=== PATIENT | female | born 1990 | race Caucasian/White ===

== ENCOUNTER 2016-10-13 08:52 | Emergency (ER) | payer BC ==
[2016-10-13 09:08] VITALS: BP 111/84
[2016-10-13] MEDS ORDERED: Acetaminophen 325 MG Tab PO ONE (09:52)
[2016-10-13] MEDS ORDERED: Ondansetron 4 MG Tab.DIS PO ONE (09:52)
--- NOTE | 2016-10-13 09:54 | EDM.PDOC ---
ED HPI GENERAL MEDICAL PROBLEM - General Chief Complaint: Laceration Stated Complaint: FALL LAST NIGHT/LAC ON CHIN Time Seen by Provider: 10/13/16 09:25 Source of Information: Reports: Patient History Limitations: Reports: No Limitations - History of Present Illness INITIAL COMMENTS - FREE TEXT/NARRATIVE: The patient presents with a left jaw injury and headache. She got up to get some tylenol for left knee pain last night about midnight. She is not sure what happened after that she was found downstairs laying next to a desk and her left chin was hurting. She was mumbling when her found her. She has a frontal headache and her left jaw hurts and she has a 0.6cm laceration to her jaw. She has no blurred or double vision. She has no neck pain. She has no chest pain or shortness of breath. She has nausea but no vomiting and no abdominal pain. She has no numbness or weakness. She says this has never happened before. She does not think she is . She has some pain to her left knee from a mild injury sustained in [facility]. Onset: Sudden Duration: Hour(s): (last night) Location: Reports: Head, Face (left jaw) Quality: Reports: Sharp Severity: Moderate Improves with: Reports: None Worsens with: Reports: Movement Context: Reports: Activity (She is not sure what happened last night) Associated Symptoms: Reports: Headaches, Nausea/Vomiting. Denies: Chest Pain, Cough, Fever/Chills, Shortness of Breath Oral/Mouth Pain Score (Numeric/FACES): 5 - Related Data Allergies Allergy/AdvReac Type Severity Reaction Status Date / Time azithromycin Allergy Hives Verified 10/13/16 09:09 [From Zithromax Z-Nico] lorazepam [From Ativan] Allergy Anxiety Verified 10/13/16 09:09 meperidine [From Demerol] Allergy Agitation Verified 10/13/16 09:09 Penicillins Allergy Hives Verified 10/13/16 09:09 prednisone Allergy Hives Verified 10/13/16 09:09 propoxyphene Allergy Anxiety Verified 10/13/16 09:09 [From Darvocet-N] Sulfa (Sulfonamide Allergy Hives Verified 10/13/16 09:09 Antibiotics) vancomycin Allergy Hives Verified 10/13/16 09:09 Home Meds: Home Meds Albuterol [Proventil HFA] 1 puff INH Q4H PRN 09/17/16 [History] ClonazePAM [KlonoPIN] 0.5 mg PO Q4H PRN 09/17/16 [History] DULoxetine [Cymbalta] 120 mg PO DAILY 09/17/16 [History] Lubiprostone [Amitiza] 8 mcg PO BID 09/17/16 [History] Ondansetron [Zofran ODT] 4 mg PO Q6H PRN 09/17/16 [History] Past Medical History Respiratory History: Reports: Asthma Gastrointestinal History: Reports: Chronic Constipation, Colon Polyp, Irritable Bowel Syndrome Other Gastrointestinal History: constipation Genitourinary History: Reports: UTI, Recurrent 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: Endometriosis Neurological History: Reports: Migraines Psychiatric History: Reports: Anxiety, Depression - Infectious Disease History Infectious Disease History: Reports: Chicken Pox, Shingles - Past Surgical History GI Surgical History: Reports: Appendectomy, Cholecystectomy Female Surgical History: Reports: Hysterectomy Social & Family History - Family History Family Medical History: Noncontributory Endocrine/Metabolic: Reports: Diabetes, type II - Tobacco Use Smoking Status *Q: Never Smoker Second Hand Smoke Exposure: No - Caffeine Use Caffeine Use: Reports: Soda Other Caffeine Use: daily - Recreational Drug Use Recreational Drug Use: No ED ROS GENERAL - Review of Systems Review Of Systems: See Below Constitutional: Reports: No Symptoms HEENT: Reports: Other (Left jaw pain with a 0.6cm laceration to the left jaw) Respiratory: Reports: No Symptoms Cardiovascular: Reports: No Symptoms Endocrine: Reports: No Symptoms GI/Abdominal: Reports: Nausea. Denies: Abdominal Pain, Vomiting : Reports: No Symptoms Musculoskeletal: Reports: No Symptoms ED EXAM, SKIN/RASH Exam: See Below Exam Limited By: No Limitations General Appearance: Alert, No Apparent Distress Eye Exam: Bilateral Eye: EOMI, PERRL Ears: Normal External Exam Nose: Normal Inspection Throat/Mouth: Other (Pain upon palpation to the left jaw) Head: Other (Pain upon palpation to the left jaw with a 0.6cm laceration to the left jaw) Neck: Normal Inspection, Supple, Non-Tender Respiratory/Chest: No Respiratory Distress, Lungs Clear, Normal Breath Sounds Cardiovascular: Regular Rate, Rhythm, No Edema, No Murmur GI/Abdominal: Soft, Non-Tender, No Organomegaly, No Mass Back Exam: Normal Inspection Extremities: Other (1 area of ecchymosis to the left anterior thigh) Neurological: Alert, Oriented, No Motor/Sensory Deficits EKG INTERPRETATION EKG Date: 10/13/16 Time: 09:36 Rhythm: NSR Rate (Beats/Min): 67 [place]: Normal P-Wave: Present QRS: Normal ST-T: Normal QT: Normal EKG Interpretation Comments: Q waves in the anterior leads Course - Vital Signs Last Recorded V/S: Last Vital Signs Temp 97.7 F 10/13/16 09:02 Pulse 74 10/13/16 09:02 Resp 16 10/13/16 09:02 BP 111/84 10/13/16 09:02 Pulse Ox 97 10/13/16 09:02 - Orders/Labs/Meds Orders: Active Orders 24 hr Category Date Time Status EKG 12 Lead [EKG Documentation Completion] [RC] STAT Care 10/13/16 09:31 Active Labs: Laboratory Tests 10/13/16 10/13/16 10/13/16 Range/Units 10:10 10:10 10:10 WBC 4.88 (3.98-10.04) K/mm3 RBC 4.30 (3.98-5.22) M/mm3 Hgb 12.6 (11.2-15.7) gm/L Hct 37.6 (34.1-44.9) % MCV 87.4 (79.4-94.8) fl MCH 29.3 (25.6-32.2) pg MCHC 33.5 (32.2-35.5) g/dl RDW Std Deviation 37.8 (36.4-46.3) fL Plt Count 275 (182-369) K/mm3 MPV 10.9 (9.4-12.3) fl Neut % (Auto) 45.9 (34.0-71.1) % Lymph % (Auto) 43.9 (19.3-51.7) % Mineral % (Auto) 8.2 (4.7-12.5) % Eos % (Auto) 1.8 (0.7-5.8) Baso % (Auto) 0.2 (0.1-1.2) % Neut # (Auto) 2.24 (1.56-6.13) K/mm3 Lymph # (Auto) 2.14 (1.18-3.74) K/mm3 Mineral # (Auto) 0.40 H (0.24-0.36) K/mm3 Eos # (Auto) 0.09 (0.04-0.36) K/mm3 Baso # (Auto) 0.01 (0.01-0.08) K/mm3 D-Dimer, Quantitative 0.23 (0.19-0.59) mg/L Sodium 140 (136-145) mEq/L Potassium 3.9 (3.5-5.1) mEq/L Chloride 103 (98-107) mEq/L Carbon Dioxide 27 (21-32) mEq/L Anion Gap 13.9 (5-15) BUN 11 (7-18) mg/dL Creatinine 0.9 (0.55-1.02) mg/dL Est Cr Clr Drug Dosing 88.68 mL/min Estimated GFR (MDRD) > 60 (>60) mL/min BUN/Creatinine Ratio 12.2 L (14-18) Glucose 96 (74-106) mg/dL Calcium 8.4 L (8.5-10.1) mg/dL Total Bilirubin 0.4 (0.2-1.0) mg/dL AST 23 (15-37) U/L ALT 44 (14-59) U/L Alkaline Phosphatase 70 (46-116) U/L Troponin I < 0.017 (0.00-0.056) ng/mL Total Protein 7.2 (6.4-8.2) g/dl Albumin 3.7 (3.4-5.0) g/dl Globulin 3.5 gm/dL Albumin/Globulin Ratio 1.1 (1-2) HCG, Qual (NEGATIVE) 10/13/16 Range/Units 10:10 WBC (3.98-10.04) K/mm3 RBC (3.98-5.22) M/mm3 Hgb (11.2-15.7) gm/L Hct (34.1-44.9) % MCV (79.4-94.8) fl MCH (25.6-32.2) pg MCHC (32.2-35.5) g/dl RDW Std Deviation (36.4-46.3) fL Plt Count (182-369) K/mm3 MPV (9.4-12.3) fl Neut % (Auto) (34.0-71.1) % Lymph % (Auto) (19.3-51.7) % Mineral % (Auto) (4.7-12.5) % Eos % (Auto) (0.7-5.8) Baso % (Auto) (0.1-1.2) % Neut # (Auto) (1.56-6.13) K/mm3 Lymph # (Auto) (1.18-3.74) K/mm3 Mineral # (Auto) (0.24-0.36) K/mm3 Eos # (Auto) (0.04-0.36) K/mm3 Baso # (Auto) (0.01-0.08) K/mm3 D-Dimer, Quantitative (0.19-0.59) mg/L Sodium (136-145) mEq/L Potassium (3.5-5.1) mEq/L Chloride (98-107) mEq/L Carbon Dioxide (21-32) mEq/L Anion Gap (5-15) BUN (7-18) mg/dL Creatinine (0.55-1.02) mg/dL Est Cr Clr Drug Dosing mL/min Estimated GFR (MDRD) (>60) mL/min BUN/Creatinine Ratio (14-18) Glucose (74-106) mg/dL Calcium (8.5-10.1) mg/dL Total Bilirubin (0.2-1.0) mg/dL AST (15-37) U/L ALT (14-59) U/L Alkaline Phosphatase (46-116) U/L Troponin I (0.00-0.056) ng/mL Total Protein (6.4-8.2) g/dl Albumin (3.4-5.0) g/dl Globulin gm/dL Albumin/Globulin Ratio (1-2) HCG, Qual Negative (NEGATIVE) Meds: Medications Discontinued Medications Generic Name Dose Route Start Last Admin Trade Name Freq PRN Reason Stop Dose Admin Acetaminophen 975 mg 10/13/16 09:52 10/13/16 10:18 Tylenol PO 10/13/16 09:53 975 mg NOW ONE Administration Ondansetron HCl 4 mg 10/13/16 09:52 10/13/16 10:18 Zofran Odt PO 10/13/16 09:53 4 mg ONETIME ONE Administration - Re-Assessments/Exams Free Text/Narrative Re-Assessment/Exam: 10/13/16 09:58 I ordered an EKG, head CT with facial bones, labs, tylenol 975mg and zofran 4mg ODT. Her EKG shows a NSR with some Q waves in the anterior leads. 10/13/16 11:[address] of her head and maxillofacial CT shows nothing acute. She does have a retension cyst in each maxillary sinus. Her labs all look good. Her told her that she may be sleep walking. He caught her 1 other time and he wonders if this happened again. Departure - Departure Time of Disposition: 11:30 Disposition: Home, Self-Care 01 Condition: Good Clinical Impression: Mucous retention cyst of maxillary sinus Fall Qualifiers: Encounter type: initial encounter Qualified Code(s): W19.XXXA - Unspecified fall, initial encounter Contusion of jaw Qualifiers: Encounter type: initial encounter Qualified Code(s): S00.83XA - Contusion of other part of head, initial encounter Laceration of jaw Qualifiers: Encounter type: initial encounter Qualified Code(s): S01.81XA - Laceration without foreign body of other part of head, initial encounter Headache Qualifiers: Headache type: unspecified Headache chronicity pattern: acute headache Intractability: not intractable Qualified Code(s): R51 - Headache - Discharge Information Referrals: Neha Maria, MEDICAL STAFF SPECIALIST [Primary Care Provider] - 1 Week Forms: ED Department Discharge Additional Instructions: Take tylenol or motrin as needed for the pain. Follow up with your provider. Wash the wound with warm soapy water 2 times per day and apply antibiotic ointment after for 5 days. Please return if you are worse. - My Orders Last 24 Hours: My Active Orders 10/13/16 09:31 EKG 12 Lead [EKG Documentation Completion] [RC] STAT - Assessment/Plan Last 24 Hours: My Active Orders 10/13/16 09:31 EKG 12 Lead [EKG Documentation Completion] [RC] STAT
--- NOTE | 2016-10-13 10:26 | CT ---
CT facial bones Technique: Multiple axial sections through the facial bones were obtained. Reconstructed coronal and sagittal images were reviewed. Findings: Rounded soft tissue density is seen within the right maxillary sinus measuring approximately 1.7 cm in size which is compatible with incidental retention cyst. 2 minimal rounded soft tissue densities measuring less than 5 mm are seen more inferiorly within the right maxillary sinus also compatible with minimal and incidental retention cysts. Similar finding is seen within the inferior left maxillary sinus also compatible with incidental and minimal retention cyst. Very minimal mucosal thickening seen within the ethmoid sinuses. No fluid identified within the sinuses. Mastoid sinuses and middle ear cavities are clear. No facial bone fracture is seen. No abnormality is seen within the temporomandibular joints. Right and left globes are symmetric. Impression: 1. Retention cysts within both maxillary sinuses which are felt to be incidental. Minimal mucosal thickening within the right ethmoid sinus. 2. No additional abnormality is appreciated on CT study of the facial bones. Nothing acute is appreciated. Diagnostic code #2
--- NOTE | 2016-10-13 11:01 | CT ---
Head CT Technique: Multiple axial sections through the brain were obtained. Intravenous contrast was not utilized. Comparison: No previous intracranial imaging. Findings: Ventricles along with basal cisterns and sulci over the convexities are within normal limits for the patient's age. No abnormal parenchymal densities are seen. No evidence of intracranial hemorrhage. No midline shift or mass effect is seen. Bone window settings were reviewed which show no discrete calvarial abnormality. Visualized sinuses are clear. Impression: 1. Nothing acute is identified on noncontrast head CT study. Diagnostic code #1 MTDD
== END 2016-10-13 11:57 | disposition home or self-care (01) ==
LOC: JD.ED 08:52 → MERGE 08:52 → JD.ED 11:57
DX: S01.81XA Laceration without foreign body of other part of head, initial encounter (principal); J34.89 Other specified disorders of nose and nasal sinuses; J45.909 Unspecified asthma, uncomplicated; G43.909 Migraine, unspecified, not intractable, without status migrainosus; F41.9 Anxiety disorder, unspecified; F32.9 Major depressive disorder, single episode, unspecified; Z90.49 Acquired absence of other specified parts of digestive tract; Z90.710 Acquired absence of both cervix and uterus; Z87.440 Personal history of urinary (tract) infections; Z79.899 Other long term (current) drug therapy; Z88.1 Allergy status to other antibiotic agents; Z88.2 Allergy status to sulfonamides; Z88.0 Allergy status to penicillin; Z88.8 Allergy status to other drugs, medicaments and biological substances; W19.XXXA Unspecified fall, initial encounter
CPT/HCPCS: 36415; 70450; 70486; 80053; 84484; 84703; 85025; 85379; 93005; 99284; A9270

== ENCOUNTER 2016-11-10 17:33 | Emergency (ER) | payer BC ==
[2016-11-10 17:40] VITALS: BP 121/83
[2016-11-10] MEDS ORDERED: Sodium Chloride 0.9% 10 ML Syringe FLUSH PRN (17:42)
[2016-11-10] MEDS ORDERED: Sodium Chloride 0.9% 1,000 ML IV ONE (17:42)
[2016-11-10] MEDS ORDERED: Ondansetron 4 MG/2 ML SDV IVPUSH ONE (17:42)
--- NOTE | 2016-11-10 18:22 | EDM.PDOC ---
ED HPI GENERAL MEDICAL PROBLEM - General Chief Complaint: Gastrointestinal Problem Stated Complaint: VOMITING Time Seen by Provider: 11/10/16 17:40 Source of Information: Reports: Patient History Limitations: Reports: No Limitations - History of Present Illness INITIAL COMMENTS - FREE TEXT/NARRATIVE: The patient is a 26-year-old female with a chief complaint of vomiting and diarrhea. Her symptoms started during the night last night, less than 24 hours ago. She states that she's vomited many times. Her last episode was about 5 hours ago. She also has had many episodes of diarrhea. No fever. Minimal abdominal cramping. No dysuria or hematuria. No respiratory symptoms. No known exposure to contaminated food or water, though she did eat a burrito from a fast food place yesterday. No ill contacts. No recent travel. Abdominal Pain Score (Numeric/FACES): 4 - Related Data Allergies Allergy/AdvReac Type Severity Reaction Status Date / Time azithromycin Allergy Hives Verified 11/10/16 17:40 [From Zithromax Z-Nico] lorazepam [From Ativan] Allergy Anxiety Verified 11/10/16 17:40 meperidine [From Demerol] Allergy Agitation Verified 11/10/16 17:40 Penicillins Allergy Hives Verified 11/10/16 17:40 prednisone Allergy Hives Verified 11/10/16 17:40 propoxyphene Allergy Anxiety Verified 11/10/16 17:40 [From Darvocet-N] Sulfa (Sulfonamide Allergy Hives Verified 11/10/16 17:40 Antibiotics) vancomycin Allergy Hives Verified 11/10/16 17:40 Home Meds: Home Meds Albuterol [Proventil HFA] 1 puff INH Q4H PRN 09/17/16 [History] ClonazePAM [KlonoPIN] 0.5 mg PO Q4H PRN 09/17/16 [History] DULoxetine [Cymbalta] 120 mg PO DAILY 09/17/16 [History] Lubiprostone [Amitiza] 8 mcg PO BID 09/17/16 [History] Ondansetron [Zofran ODT] 4 mg PO Q6H PRN 09/17/16 [History] Past Medical History Respiratory History: Reports: Asthma Gastrointestinal History: Reports: Chronic Constipation, Colon Polyp, Irritable Bowel Syndrome Other Gastrointestinal History: constipation Genitourinary History: Reports: UTI, Recurrent 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 Neurological History: Reports: Migraines Psychiatric History: Reports: Anxiety, Depression - Infectious Disease History Infectious Disease History: Reports: Chicken Pox, Shingles - Past Surgical History GI Surgical History: Reports: Appendectomy, Cholecystectomy Female Surgical History: Reports: Hysterectomy Social & Family History - Family History Family Medical History: Noncontributory Endocrine/Metabolic: Reports: Diabetes, type II - Tobacco Use Smoking Status *Q: Never Smoker Second Hand Smoke Exposure: No - Caffeine Use Caffeine Use: Reports: Soda Other Caffeine Use: daily - Recreational Drug Use Recreational Drug Use: No ED ROS GENERAL - Review of Systems Review Of Systems: See Below Constitutional: Reports: Chills, Malaise, Weakness. Denies: Fever HEENT: Reports: No Symptoms Respiratory: Denies: Shortness of Breath Cardiovascular: Denies: Chest Pain Endocrine: Reports: No Symptoms GI/Abdominal: Reports: Abdominal Pain, Diarrhea, Nausea : Denies: Dysuria Musculoskeletal: Reports: No Symptoms Skin: Reports: No Symptoms Neurological: Reports: No Symptoms ED EXAM, GI/ABD - Physical Exam Exam: See Below Exam Limited By: No Limitations General Appearance: Alert, WD/WN, No Apparent Distress Eyes: Bilateral: Normal Appearance Ears: Normal External Exam Nose: Normal Inspection, Normal Mucosa, No Blood Throat/Mouth: Normal Voice, Other Head: Atraumatic, Normocephalic Neck: Supple Respiratory/Chest: No Respiratory Distress, Lungs Clear Cardiovascular: Normal Peripheral Pulses, Regular Rate, Rhythm, No Murmur GI/Abdominal Exam: Soft, No Distention, Other (mild distention diffusely) Neurological: Alert, Oriented, No Motor/Sensory Deficits Psychiatric: Normal Affect, Normal Mood Skin Exam: Warm, Dry, Intact, Normal Color, No Rash Course - Vital Signs Last Recorded V/S: Last Vital Signs Temp 36.9 C 11/10/16 17:38 Pulse 111 H 11/10/16 17:38 Resp 18 11/10/16 17:38 BP 121/83 11/10/16 17:38 Pulse Ox 97 11/10/16 17:38 - Orders/Labs/Meds Orders: Active Orders 24 hr Category Date Time Status Peripheral IV Care [RC] . DIRECTED Care 11/10/16 17:42 Active Sodium Chloride 0.9% [Saline Flush] Med 11/10/16 17:42 Active 10 ml FLUSH ASDIRECTED PRN Peripheral IV Insertion Adult [OM.PC] Routine Oth 11/10/16 17:42 Ordered Medication Orders Sodium Chloride (Saline Flush) 10 ml FLUSH ASDIRECTED PRN PRN Reason: Keep Vein Open Last Admin: 11/10/16 18:14 Dose: 10 ml Labs: Laboratory Tests 11/10/16 11/10/16 Range/Units 18:10 18:10 WBC 14.23 H (3.98-10.04) K/mm3 RBC 5.06 (3.98-5.22) M/mm3 Hgb 14.6 (11.2-15.7) gm/L Hct 43.0 (34.1-44.9) % MCV 85.0 (79.4-94.8) fl MCH 28.9 (25.6-32.2) pg MCHC 34.0 (32.2-35.5) g/dl RDW Std Deviation 38.9 (36.4-46.3) fL Plt Count 286 (182-369) K/mm3 MPV 11.0 (9.4-12.3) fl Neut % (Auto) 84.5 H (34.0-71.1) % Lymph % (Auto) 8.6 L (19.3-51.7) % [place] % (Auto) 6.3 (4.7-12.5) % Eos % (Auto) 0.4 L (0.7-5.8) Baso % (Auto) 0.1 (0.1-1.2) % Neut # (Auto) 12.03 H (1.56-6.13) K/mm3 Lymph # (Auto) 1.22 (1.18-3.74) K/mm3 [place] # (Auto) 0.90 H (0.24-0.36) K/mm3 Eos # (Auto) 0.05 (0.04-0.36) K/mm3 Baso # (Auto) 0.01 (0.01-0.08) K/mm3 Manual Slide Review Normal smear Sodium 140 (136-145) mEq/L Potassium 3.4 L (3.5-5.1) mEq/L Chloride 102 (98-107) mEq/L Carbon Dioxide 25 (21-32) mEq/L Anion Gap 16.4 H (5-15) BUN 9 (7-18) mg/dL Creatinine 1.0 (0.55-1.02) mg/dL Est Cr Clr Drug Dosing 79.81 mL/min Estimated GFR (MDRD) > 60 (>60) mL/min BUN/Creatinine Ratio 9.0 L (14-18) Glucose 98 (74-106) mg/dL Calcium 8.5 (8.5-10.1) mg/dL Total Bilirubin 0.5 (0.2-1.0) mg/dL AST 21 (15-37) U/L ALT 27 (14-59) U/L Alkaline Phosphatase 87 (46-116) U/L Total Protein 7.8 (6.4-8.2) g/dl Albumin 4.2 (3.4-5.0) g/dl Globulin 3.6 gm/dL Albumin/Globulin Ratio 1.2 (1-2) Lipase 101 (73-393) U/L Meds: Medications Generic Name Dose Route Start Last Admin Trade Name Freq PRN Reason Stop Dose Admin Sodium Chloride 10 ml 11/10/16 17:42 11/10/16 18:14 Saline Flush FLUSH 10 ml ASDIRECTED PRN Administration Keep Vein Open Discontinued Medications Generic Name Dose Route Start Last Admin Trade Name Freq PRN Reason Stop Dose Admin Sodium Chloride 1,000 mls @ 1,000 mls/hr 11/10/16 17:42 11/10/16 18:17 Normal Saline IV 11/10/16 18:41 1,000 mls/hr ONETIME ONE Administration Ondansetron HCl 4 mg 11/10/16 17:42 11/10/16 18:14 Zofran IVPUSH 11/10/16 17:43 4 mg ONETIME ONE Administration - Re-Assessments/Exams Free Text/Narrative Re-Assessment/Exam: 11/10/16 18:25 Feels better after fluids and Zofran. Tolerating by mouth liquids. Discussed return precautions. Likely gastroenteritis, viral versus toxin mediated. 11/10/16 19:03 Feeling better after fluids. No further vomiting in ED. Departure - Departure Time of Disposition: 19:03 Disposition: Home, Self-Care 01 Clinical Impression: Vomiting, Diarrhea, Dehydration - Discharge Information Referrals: Neha Maria FACE WORKER [Primary Care Provider] - Forms: ED Department Discharge Additional Instructions: 1. Drink plenty of fluids. Clear liquids today. Advance diet as tolerated once you have an appetite. 2. Take your home supply of zofran as needed for nausea. 3. Return to the ED if you have worsening abdominal pain or vomiting without keeping liquids down or other concerning symptoms. - My Orders Last 24 Hours: My Active Orders 11/10/16 17:42 Peripheral IV Care [RC] . DIRECTED Sodium Chloride 0.9% [Saline Flush] 10 ml FLUSH ASDIRECTED PRN Peripheral IV Insertion Adult [OM.PC] Routine - Assessment/Plan Last 24 Hours: My Active Orders 11/10/16 17:42 Peripheral IV Care [RC] . DIRECTED Sodium Chloride 0.9% [Saline Flush] 10 ml FLUSH ASDIRECTED PRN Peripheral IV Insertion Adult [OM.PC] Routine
== END 2016-11-10 19:25 | disposition home or self-care (01) ==
LOC: JD.ED 17:33 → MERGE 17:33 → JD.ED 19:25
DX: R11.10 Vomiting, unspecified (principal); R19.7 Diarrhea, unspecified; E86.0 Dehydration; J45.909 Unspecified asthma, uncomplicated; F41.9 Anxiety disorder, unspecified; F32.9 Major depressive disorder, single episode, unspecified; Z90.49 Acquired absence of other specified parts of digestive tract; Z90.710 Acquired absence of both cervix and uterus; Z87.440 Personal history of urinary (tract) infections; Z79.899 Other long term (current) drug therapy; Z88.0 Allergy status to penicillin; Z88.1 Allergy status to other antibiotic agents; Z88.2 Allergy status to sulfonamides; Z88.8 Allergy status to other drugs, medicaments and biological substances
CPT/HCPCS: 36415; 80053; 83690; 85025; 96361; 96374; 99283; J2405; J7040; J7050; 99284

== ENCOUNTER 2017-04-11 08:38 | Day surgery (SDC) | payer BC ==
[~2017-04-11 08:38] MED LIST: Lactated Ringers 1,000 ML IV SCH; Lidocaine 1%/Sod Bicarbonate in NS 8.4% 1 ML Syringe IV PRN; Sodium Chloride 0.9% 10 ML Syringe FLUSH PRN
[2017-04-11] MEDS ORDERED: Bupivacaine 0.5% 30 ML SDV ONE (08:51)
[2017-04-11] MEDS ORDERED: Rocuronium 50 MG/5 ML Vial ONE (09:00)
[2017-04-11] MEDS ORDERED: Ondansetron 4 MG/2 ML SDV ONE ×2 (09:00→09:43)
[2017-04-11] MEDS ORDERED: Lidocaine 1% 4 ML ONE (09:00)
[2017-04-11] MEDS ORDERED: Dexamethasone 4 MG/ML SDV ONE (09:01)
[2017-04-11] MEDS ORDERED: Propofol 200 MG/20 ML SDV ONE (09:01)
[2017-04-11] MEDS ORDERED: fentaNYL 250 MCG/5 ML SDV ONE ×2 (09:01→10:18)
[2017-04-11] MEDS ORDERED: Midazolam 1 MG/ML 2 ML SDV ONE (09:01)
--- NOTE | 2017-04-11 09:12 | PCM.PREANE ---
Preanesthetic Assessment - Anesthesia/Transfusion/Family Hx Anesthesia History: Prior Anesthesia Without Reaction (wake up agitated) Family History of Anesthesia Reaction: No Transfusion History: No Prior Transfusion(s) - Review of Systems General: No Symptoms Pulmonary: No Symptoms Cardiovascular: No Symptoms Gastrointestinal: No Symptoms, Abdominal Pain Neurological: No Symptoms Other: Reports: Anxiety - Physical Assessment NPO Status Date: 04/10/17 (sip of water with pills this am) NPO Status Time: 20:00 Pulse: 84 O2 Sat by Pulse Oximetry: 97 Respiratory Rate: 16 Blood Pressure: 113/83 Temperature: 98.1 F Height: 5 ft 5 in Weight: 73 kg ASA Class: 2 Mental Status: Alert & Oriented x3 Airway Class: Mallampati = 1 Dentition: Reports: Normal Dentition Thyro-Mental Finger Breadths: 3 Mouth Opening Finger Breadths: 3 ROM/Head Extension: Full Lungs: Clear to Auscultation, Normal Respiratory Effort Cardiovascular: Regular Rate, Regular Rhythm - Allergies Allergies/Adverse Reactions: Allergies Allergy/AdvReac Type Severity Reaction Status Date / Time azithromycin Allergy Abdominal Verified 04/07/17 14:42 Pain meperidine [From Demerol] Allergy Agitation Verified 04/07/17 14:42 Penicillins Allergy Hives Verified 04/07/17 14:42 prednisone Allergy Hives Verified 04/07/17 14:42 propoxyphene Allergy Anxiety Verified 04/07/17 14:42 [From Darvocet-N] Sulfa (Sulfonamide Allergy Anaphylactic Verified 04/07/17 14:42 Antibiotics) Shock vancomycin Allergy Anaphylactic Verified 04/07/17 14:42 Shock lorazepam [From Ativan] AdvReac Anxiety Verified 04/07/17 14:42 meperidine HCl [From Demerol] AdvReac Anxiety Verified 04/07/17 14:42 - Blood Blood Available: No - Acknowledgements Anesthesia Type Planned: General Anesthesia Pt an Appropriate Candidate for the Planned Anesthesia: Yes Alternatives and Risks of Anesthesia Discussed w Pt/Guardian: Yes Pt/Guardian Understands and Agrees with Anesthesia Plan: Yes PreAnesthesia Questionnaire HEENT History: Reports: Allergic Rhinitis, Impaired Vision, Sinusitis Cardiovascular History: Reports: High Cholesterol, Other (See Below) Other Cardiovascular History: tachycardia Respiratory History: Reports: Asthma Gastrointestinal History: Reports: Irritable Bowel Syndrome, Other (See Below) Other Gastrointestinal History: elevated LFTs, RUQ pain Genitourinary History: Reports: None, Renal Calculus, UTI, Recurrent 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: Reports: Endometriosis Other OB/BYN History: 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 Musculoskeletal History: Reports: Fibromyalgia, Other (See Below) Other Musculoskeletal History: chronic pain Neurological History: Reports: None Psychiatric History: Reports: Anxiety, Depression Endocrine/Metabolic History: Reports: Vitamin D Deficiency Hematologic History: Reports: None Immunologic History: Reports: None Oncologic (Cancer) History: Reports: None - Infectious Disease History Infectious Disease History: Reports: Chicken Pox, MRSA, Shingles Other Infectious Disease History: 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 - Past Surgical History Head Surgeries/Procedures: Reports: None HEENT Surgical History: Reports: Tonsillectomy Respiratory Surgical History: Reports: None GI Surgical History: Reports: Appendectomy, Cholecystectomy, Colonoscopy, EGD Other GI Surgeries/Procedures: perotonitis, n/v Female Surgical History: Reports: Hysterectomy, Salpingo-Oophorectomy, Other (See Below) (laparoscopies multiple- 15) Other Female Surgeries/Procedures: radical hysterectomy Endocrine Surgical History: Reports: None Neurological Surgical History: Reports: None Oncologic Surgical History: Reports: None Dermatological Surgical History: Reports: None - SUBSTANCE USE Smoking Status *Q: Never Smoker Tobacco Use Within Last Twelve Months: No Second Hand Smoke Exposure: No Days Per Week of Alcohol Use: 0 Number of Drinks Per Day: 0 Total Drinks Per Week: 0 Recreational Drug Use History: Yes Recreational Drug Type: Reports: Marijuana/Hashish (in past) - HOME MEDS Home Medications: Home Meds Estradiol 1.5 mg PO DAILY 10/30/15 [History] ClonazePAM [KlonoPIN] 0.5 mg PO Q4H PRN 09/17/16 [History] DULoxetine [Cymbalta] 120 mg PO DAILY 09/17/16 [History] Diclofenac Sodium [Voltaren 1% Gel] 1 applic TOP QID 04/07/17 [History] Gabapentin [Neurontin] 100 mg PO TID 04/07/17 [History] Lactobacillus Acidophilus [Probiotic] 1 cap PO DAILY 04/07/17 [History] Linaclotide [Linzess] 145 mg PO DAILY 04/07/17 [History] Ondansetron [Ondansetron ODT] 8 mg PO TID 04/07/17 [History] Vortioxetine Hydrobromide [Trintellix] 10 mg PO DAILY 04/07/17 [History] - CURRENT (IN HOUSE) MEDS Current Meds: Current Medications Lactated Ringer's (Ringers, Lactated) 1,000 mls @ 125 mls/hr IV ASDIRECTED POP Stop: 04/11/17 18:00 Lidocaine/Sodium Bicarbonate (Buffered Lidocaine 1% In Ns 8.4%) 0.25 ml IV ONETIME PRN PRN Reason: Prior to IV Start Stop: 04/11/17 18:00 Sodium Chloride (Saline Flush) 10 ml FLUSH ASDIRECTED PRN PRN Reason: Keep Vein Open Stop: 04/11/17 18:00 Discontinued Medications Bupivacaine HCl (Marcaine 0.5%) Confirm Administered Dose 30 ml .ROUTE .ST-MED ONE Stop: 04/11/17 08:52 Dexamethasone (Dexamethasone) Confirm Administered Dose 4 mg .ROUTE .ST-MED ONE Stop: 04/11/17 09:02 Fentanyl (Sublimaze) Confirm Administered Dose 250 mcg .[facility]TE [facility] Stop: 04/11/17 09:02 Lactated Ringer's (Ringers, Lactated) 1,000 mls @ 125 mls/hr IV ASDIRECTED [facility] Lidocaine HCl (Xylocaine-Mpf 1%) Confirm Administered Dose 4 mls @ as directed .ROUTE [facility] ONE Stop: 04/11/17 09:01 Lidocaine/Sodium Bicarbonate (Buffered Lidocaine 1% In Ns 8.4%) 0.25 ml IV ONETIME PRN PRN Reason: Prior to IV Start Midazolam HCl (Versed 1 Mg/Ml) Confirm Administered Dose 2 mg .ROUTE .STK-MED ONE Stop: 04/11/17 09:02 Ondansetron HCl (Zofran) Confirm Administered Dose 4 mg .ROUTE [facility] ONE Stop: 04/11/17 09:01 Propofol (Diprivan 20 Ml) Confirm Administered Dose 200 mg .ROUTE [facility] ONE Stop: 04/11/17 09:02 Rocuronium [place] (Zemuron) Confirm Administered Dose 50 mg .ROUTE [facility] ONE Stop: 04/11/17 09:01 Sodium Chloride (Saline Flush) 10 ml FLUSH ASDIRECTED PRN PRN Reason: Keep Vein Open
[2017-04-11] MEDS ORDERED: Scopolamine 1 MG Transdermal Patch TOP ONE (09:14)
[2017-04-11] MEDS ORDERED: Promethazine 6.25 MG in Sodium Chloride 0.9% 9 ML IV PRN (09:46)
[2017-04-11] MEDS ORDERED: Albuterol 0.083% 2.5 MG/3 ML Neb Soln NEB ONE (09:46)
[2017-04-11] MEDS ORDERED: HYDROmorphone 0.5 MG/0.5 ML Syringe IVPUSH PRN (09:46)
[2017-04-11] MEDS ORDERED: Ondansetron 4 MG/2 ML SDV IVPUSH PRN (09:46)
[2017-04-11] MEDS ORDERED: fentaNYL 100 MCG/2 ML SDV IVPUSH PRN (09:46)
[2017-04-11] MEDS ORDERED: Lactated Ringers 1,000 ML ONE (09:56)
[2017-04-11] MEDS ORDERED: HYDROmorphone 1 MG/ML Syringe ONE (09:58)
[2017-04-11] MEDS ORDERED: Neostigmine Methylsulfate 1 MG/ML 5 ML Syringe ONE (10:13)
[2017-04-11] MEDS ORDERED: diphenhydrAMINE 50 MG/ML SDV ONE (10:40)
--- NOTE | 2017-04-11 10:41 | PCM.POSTAN ---
POST ANESTHESIA ASSESSMENT - MENTAL STATUS Mental Status: Alert, Oriented - VITAL SIGNS Pulse Rate: 116 SaO2: 98 Resp Rate: 20 Blood Pressure: 116/72 Temperature: 98.4 F - RESPIRATORY Respiratory Status: Respiratory Rate WNL, Airway Patent, O2 Saturation Stable, Supplemental Oxygen - CARDIOVASCULAR CV Status: Pulse Rate WNL, Blood Pressure Stable - GASTROINTESTINAL GI Status: No Symptoms - PAIN Pain Score: 7 - POST OP HYDRATION Hydration Status: Adequate & Stable
--- NOTE | 2017-04-11 10:41 | PCM.OPNOTE ---
- General Post-Op/Procedure Note Date of Surgery/Procedure: 04/11/17 Operative Procedure(s): Diagnostic laparoscopy with lysis of adhesions Findings: Overall normal-appearing omentum, bowel and liver. Adhesions from omentum to anterior abdominal wall near umbilicus. Filmy adhesions from the descending colon to left lateral abdominal wall. Filmy adhesions from ascending colon to right lateral abdominal wall near the hepatic flexure. Pre Op Diagnosis: Pelvic pain Post-Op Diagnosis: Same, adhesions Anesthesia Technique: General ET Tube Primary Surgeon: Hal Lyons Secondary Surgeon: Crow Garner Anesthesia Provider: Sukumar Leo Reason Echocardiography Radiology Technologist Was Necessary: Patient's safety and technical skills of laparoscopy Role of Echocardiography Radiology Technologist: Manipulation of laparoscopic instruments during case Fluid Replacement, Intraop: 1,100 Output, Urine Amount: 75 EBL in mLs: 5 Complications: None Condition: Good Free Text/Narrative:: Duration: 38 minutes Procedure in detail: Patient was seen in the preoperative holding area and reviewed H&P and operative consent forms. Patient desired to proceed with surgery including diagnostic laparoscopy, possible fulguration of endometriosis lesions, possible lysis of adhesions and possible biopsies as indicated. The risks and benefits were reviewed and patient desired to proceed. Patient was taken back to operating room #3 and given general anesthesia with an endotracheal tube that was placed without difficulty. She was placed in dorsal supine position. A Ortiz catheter was placed without difficulty. She was prepped and draped in the normal sterile fashion. A time out was held verifying patient information using 2 patient identifiers and to confirm the correct procedure. The umbilicus was injected with 0.5% Marcaine and a stab incision with a scalpel was made. A 5 mm trocar was inserted under direct visualization with the laparoscope. Attention was then turned to the patient's pelvis and an area in the previous suprapubic scar was injected with 0.5% Marcaine and a stab incision was made with the scalpel. 5 mm trocar was inserted under direct visualization. The abdomen and pelvis was then explored and noted to have adhesions near the umbilicus to the omentum. Attention was then turned to the left lower quadrant and an area approximately [facility] between the ASIS and the umbilicus was injected with 0.5% Marcaine and a stab incision was made with a scalpel. 5 mm trocar was inserted under direct visualization. The anterior abdominal wall adhesions were then taken down using a harmonic scalpel. Hemostasis was noted. Attention was then turned to the pelvis and there is noted to be a proximally 5 mm thick adhesion from the descending colon to the left lateral abdominal wall as well as some filmy adhesions. These were taken down using the Harmonic scalpel. Hemostasis was again noted. The abdomen was then further explored and noted to have filmy adhesions from the ascending colon to the right lateral wall. These were taken down using blunt traction with laparoscopic graspers and the Harmonic scalpel. There is a small amount of bleeding on the anterior abdominal wall and this was cauterized using the Harmonic scalpel. Hemostasis was noted. The remainder of the abdomen was explored and was noted to have overall normal-appearing omentum , bowel and liver. Case was completed at this time. The inferior trochars were removed under direct visualization and no bleeding was visualized. The gas was removed from the abdomen and the umbilical trocar was removed without difficulty. The skin incisions were closed using interrupted sutures of 4-0 Monocryl. Skin glue was applied over the top of the incisions. Lap, sponge, instrument and needle counts are correct 2 at the end of the case. The patient was awoken and taken back to the recovery area. She will be discharged from PACU once she is tolerating small amount of regular diet, pain is controlled with oral medications, voiding without difficulty, and ambulating without difficulty. She is given strict return precautions for severe pain, fevers, chills, severe nausea or vomiting, or bleeding or pus coming from the incision. Patient will follow up in 2-3 weeks or earlier as needed.
[2017-04-11] MEDS ORDERED: diphenhydrAMINE 50 MG/ML SDV IVPUSH ONE (10:48)
[2017-04-11] MEDS ORDERED: Acetaminophen/oxyCODONE 325-5 MG Tab PO SCH (12:00)
--- NOTE | 2017-04-11 12:18 | PCM48HPAN ---
Post Anesthesia Note - EVALUATION WITHIN 48HRS OF ANESTHETIC Vital Signs in Normal Range: Yes Patient Participated in Evaluation: Yes Respiratory Function Stable: Yes Airway Patent: Yes Cardiovascular Function Stable: Yes Hydration Status Stable: Yes Pain Control Satisfactory: Yes Nausea and Vomiting Control Satisfactory: Yes Mental Status Recovered: Yes
[2017-04-11 12:22] VITALS: BP 92/50
== END 2017-04-11 12:35 | disposition home or self-care (01) ==
LOC: JD.SDS 08:38
PROVIDERS: ATTEND Obstetrics & Gynecology
DX: N73.6 Female pelvic peritoneal adhesions (postinfective) (principal); E78.00 Pure hypercholesterolemia, unspecified; J45.909 Unspecified asthma, uncomplicated; M79.7 Fibromyalgia; K58.9 Irritable bowel syndrome, unspecified; F41.8 Other specified anxiety disorders; Z88.0 Allergy status to penicillin; Z88.1 Allergy status to other antibiotic agents; Z88.2 Allergy status to sulfonamides; Z88.5 Allergy status to narcotic agent; Z88.8 Allergy status to other drugs, medicaments and biological substances; Z87.440 Personal history of urinary (tract) infections; Z87.442 Personal history of urinary calculi; Z86.14 Personal history of Methicillin resistant Staphylococcus aureus infection; Z98.890 Other specified postprocedural states; Z90.710 Acquired absence of both cervix and uterus; Z90.722 Acquired absence of ovaries, bilateral; Z90.49 Acquired absence of other specified parts of digestive tract; Z79.899 Other long term (current) drug therapy; Z79.818 Long term (current) use of other agents affecting estrogen receptors and estrogen levels; Z82.62 Family history of osteoporosis; Z83.42 Family history of familial hypercholesterolemia; Z82.49 Family history of ischemic heart disease and other diseases of the circulatory system; Z83.3 Family history of diabetes mellitus; N39.0 Urinary tract infection, site not specified
CPT/HCPCS: 36415; 51798; 58660; 81001; 85025; 87086; 87088; 87186; 99283; A9270; J1170; J1200; J2250; J2405; J2710; J3010; J7120; P9612; 00840; J1100; J2001; J2704

== ENCOUNTER 2017-04-11 20:42 | Emergency (ER) | payer BC ==
[2017-04-11 20:53] VITALS: BP 104/81
--- NOTE | 2017-04-11 21:34 | EDM.PDOC ---
ED HPI GENERAL MEDICAL PROBLEM - General Chief Complaint: Genitourinary Problem Stated Complaint: COMPLICATIONS FROM SURGERY TODAY Time Seen by Provider: 04/11/17 20:53 Source of Information: Reports: Patient, Old Records History Limitations: Reports: No Limitations - History of Present Illness INITIAL COMMENTS - FREE TEXT/NARRATIVE: The patient underwent an exploratory laparoscopy with lysis of adhesions per Dr. Bryant and Dr. Garner, earlier today. She states that since her surgery, she has not been able to urinate. She states that she has a history of urinary retention, but not specifically associated with surgery. She states that she has an appointment to see a Urologist on 05/06/2017. No recent fever or dysuria. No lower back pain or flank pain. The patient's PCP is Paige Coleman. Lower Abdomen Pain Score (Numeric/FACES): 8 - Related Data Allergies Allergy/AdvReac Type Severity Reaction Status Date / Time Penicillins Allergy Hives Verified 04/07/17 14:42 prednisone Allergy Hives Verified 04/07/17 14:42 Sulfa (Sulfonamide Allergy Anaphylactic Verified 04/07/17 14:42 Antibiotics) Shock vancomycin Allergy Anaphylactic Verified 04/07/17 14:42 Shock azithromycin AdvReac Abdominal Verified 04/11/17 10:24 Pain lorazepam [From Ativan] AdvReac Anxiety Verified 04/07/17 14:42 meperidine [From Demerol] AdvReac Agitation Verified 04/11/17 10:24 meperidine HCl [From Demerol] AdvReac Anxiety Verified 04/07/17 14:42 propoxyphene AdvReac Anxiety Verified 04/11/17 10:24 [From Darvocet-N] Home Meds: Home Meds Estradiol 1.5 mg PO DAILY 10/30/15 [History] ClonazePAM [KlonoPIN] 0.5 mg PO Q4H PRN 09/17/16 [History] DULoxetine [Cymbalta] 120 mg PO DAILY 09/17/16 [History] Diclofenac Sodium [Voltaren 1% Gel] 1 applic TOP QID 04/07/17 [History] Gabapentin [Neurontin] 100 mg PO TID 04/07/17 [History] Lactobacillus Acidophilus [Probiotic] 1 cap PO DAILY 04/07/17 [History] Linaclotide [Linzess] 145 mg PO DAILY 04/07/17 [History] Ondansetron [Ondansetron ODT] 8 mg PO TID 04/07/17 [History] Vortioxetine Hydrobromide [Trintellix] 10 mg PO DAILY 04/07/17 [History] Ibuprofen 600 mg PO Q6H PRN #60 tablet 04/11/17 [Rx] Nitrofurantoin Monohyd/M-Cryst [Macrobid 100 mg Capsule] 1 cap PO Q12H #9 capsule 04/11/17 [Rx] oxyCODONE HCl/Acetaminophen [Percocet 5-325 mg Tablet] 1 - 2 each PO Q6H PRN # 20 tablet 04/11/17 [Rx] Past Medical History HEENT History: Reports: Allergic Rhinitis, Impaired Vision, Sinusitis Cardiovascular History: Reports: High Cholesterol, Other (See Below) Other Cardiovascular History: tachycardia Respiratory History: Reports: Asthma Gastrointestinal History: Reports: Irritable Bowel Syndrome, Other (See Below) Other Gastrointestinal History: elevated LFTs, RUQ pain Genitourinary History: Reports: None, Renal Calculus, UTI, Recurrent 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: Reports: Endometriosis Other OB/BYN History: 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 Musculoskeletal History: Reports: Fibromyalgia, Other (See Below) Other Musculoskeletal History: chronic pain Neurological History: Reports: None Psychiatric History: Reports: Anxiety, Depression Endocrine/Metabolic History: Reports: Vitamin D Deficiency Hematologic History: Reports: None Immunologic History: Reports: None Oncologic (Cancer) History: Reports: None - Infectious Disease History Infectious Disease History: Reports: Chicken Pox, MRSA, Shingles Other Infectious Disease History: 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 - Past Surgical History Head Surgeries/Procedures: Reports: None HEENT Surgical History: Reports: Tonsillectomy Respiratory Surgical History: Reports: None GI Surgical History: Reports: Appendectomy, Cholecystectomy, Colonoscopy, EGD Other GI Surgeries/Procedures: perotonitis, n/v Female Surgical History: Reports: Hysterectomy, Salpingo-Oophorectomy, Other (See Below) Other Female Surgeries/Procedures: radical hysterectomy Endocrine Surgical History: Reports: None Neurological Surgical History: Reports: None Oncologic Surgical History: Reports: None Dermatological Surgical History: Reports: None Social & Family History - Family History Family Medical History: Noncontributory Cardiac: Reports: CAD (grandfather has had 2 CABG) Endocrine/Metabolic: Reports: Diabetes, type II, Osteoporosis - Tobacco Use Smoking Status *Q: Never Smoker Used Tobacco, but Quit: No Second Hand Smoke Exposure: No - Caffeine Use Caffeine Use: Reports: Soda Other Caffeine Use: daily - Alcohol Use Days Per Week of Alcohol Use: 0 Number of Drinks Per Day: 0 Total Drinks Per Week: 0 - Recreational Drug Use Recreational Drug Use: No Drug Use in Last 12 Months: Yes Recreational Drug Type: Reports: Marijuana/Hashish (in past) Recreational Drug Use Frequency: Daily - Living Situation & Occupation Living situation: Reports: with Significant Other Occupation: Unemployed ED ROS GENERAL - Review of Systems Review Of Systems: ROS reveals no pertinent complaints other than HPI. ED EXAM, RENAL/ - Physical Exam Exam: See Below Exam Limited By: No Limitations General Appearance: Alert, WD/WN, No Apparent Distress Eye Exam: Bilateral Eye: Normal Inspection Ears: Normal External Exam, Hearing Grossly Normal Nose: Normal Inspection, No Blood Throat/Mouth: Normal Inspection, Normal Lips, Normal Voice, No Airway Compromise Head: Atraumatic, Normocephalic Neck: Normal Inspection, Full Range of Motion Respiratory/Chest: No Respiratory Distress, Lungs Clear, Normal Breath Sounds, No Accessory Muscle Use Cardiovascular: Normal Peripheral Pulses, Regular Rate, Rhythm, No Gallop, No JVD, No Murmur, No Rub GI/Abdominal: Normal Bowel Sounds, Soft, No Organomegaly, No Distention, No Abnormal Bruit, No Mass, Tender (Appropriate dajuan-incisional tenderness) (Female) Exam: Deferred Rectal (Female) Exam: Deferred Back Exam: Normal Inspection, Full Range of Motion, NT Extremities: Normal Inspection, Normal Range of Motion, No Pedal Edema, Normal Capillary Refill Neurological: Alert, Oriented, Normal Cognition, No Motor/Sensory Deficits Psychiatric: Normal Affect Skin Exam: Warm, Dry, Intact, Normal Color, No Rash Course - Vital Signs Last Recorded V/S: Last Vital Signs Temp 36.7 C 04/11/17 20:50 Pulse 100 04/11/17 20:50 Resp 16 04/11/17 20:50 BP 104/81 04/11/17 20:50 Pulse Ox 98 04/11/17 20:50 - Orders/Labs/Meds Orders: Active Orders 24 hr Category Date Time Status CULTURE URINE [RM] Stat Lab 04/11/17 22:48 Ordered Labs: Laboratory Tests 04/11/17 Range/Units 21:39 Urine Color Yellow (Yellow) Urine Appearance Clear (Clear) Urine pH 6.5 (5.0-8.0) Ur Specific [place] 1.020 (1.005-1.030) Urine Protein Negative (Negative) Urine Glucose (UA) Negative (Negative) Urine Ketones Negative (Negative) Urine Occult Blood Negative (Negative) Urine Nitrite Positive H (Negative) Urine Bilirubin Negative (Negative) Urine Urobilinogen 0.2 (0.2-1.0) Ur Leukocyte Esterase Negative (Negative) Urine RBC 0-5 (0-5) /hpf Urine WBC 5-10 H (0-5) /hpf Ur Epithelial Cells 0-5 (0-5) /hpf Urine Bacteria Moderate H (FEW) /hpf Urine Mucus Not seen (FEW) /hpf Meds: Medications Discontinued Medications Generic Name Dose Route Start Last Admin Trade Name Freq PRN Reason Stop Dose Admin Nitrofurantoin Macrocrystals 100 mg 04/11/17 22:44 Macrobid PO 04/11/17 22:45 ONETIME ONE - Re-Assessments/Exams Free Text/Narrative Re-Assessment/Exam: 04/11/17 21:32 Bladder scan in case 500 mL of urine in the bladder. The patient was offered the choice of a quick catheter, with the possibility of having to return to the ED for repeat catheterization, versus placement of a Ortiz to a leg bag, which would require follow-up with her Urologist this week, not 05/06/2017. The patient opted for quick catheterization. I will send a urinalysis. 04/11/17 22:45 The patient's urinalysis is consistent with a UTI. I have ordered a urine culture. The patient reports allergies to numerous antibiotics, including penicillin, sulfa, vancomycin, and azithromycin. I will start the patient on Macrobid. A scopolamine patch was found behind the patient's left ear. This anticholinergic could contribute to urinary retention. The patient removed it. Departure - Departure Time of Disposition: 22:46 Disposition: Home, Self-Care 01 Condition: Good Clinical Impression: Urinary retention, UTI (urinary tract infection) - Discharge Information Referrals: Paige Coleman PA [Physician Typer] - Forms: ED Department Discharge Additional Instructions: You were seen in the emergency room for inability to urinate, following surgery earlier today. Workup in the ER included a bladder scan and urinalysis. The bladder scan revealed 500 mL of urine retained in your bladder. This was drained with a catheter. Your urinalysis is consistent with a urinary tract infection. You have been started on the antibiotic Macrobid. Take one tablet every 12 hours , as prescribed. Finish the entire prescription unless told otherwise by Paige Coleman. Stay adequately hydrated. A sample of your urine has been sent for culture. Results should be available within 3 days. Contact the office of Ms. Coleman on 04/14/2017, to check on the urine culture results, to make sure that you are on the right antibiotic. If any other problems, including continued inability to urinate, please do not hesitate to return to the ER. - My Orders Last 24 Hours: My Active Orders 04/11/17 22:48 CULTURE URINE [RM] Stat - Assessment/Plan Last 24 Hours: My Active Orders 04/11/17 22:48 CULTURE URINE [RM] Stat
[2017-04-11] MEDS ORDERED: Nitrofurantoin Monohydrate/Macrocrystalline 100 MG Cap PO ONE (22:44)
== END 2017-04-11 23:11 | disposition home or self-care (01) ==
LOC: JD.ED 20:42
DX: N39.0 Urinary tract infection, site not specified (principal); E78.00 Pure hypercholesterolemia, unspecified; Z88.2 Allergy status to sulfonamides; Z88.0 Allergy status to penicillin; Z88.8 Allergy status to other drugs, medicaments and biological substances; Z79.899 Other long term (current) drug therapy
CPT/HCPCS: 51798; 81001; 87086; 87088; 87186; 99283; A9270; P9612

== ENCOUNTER 2017-04-12 22:18 | Emergency (ER) | payer BC ==
[2017-04-12 22:47] VITALS: BP 132/94
--- NOTE | 2017-04-12 22:59 | EDM.PDOC ---
ED HPI GENERAL MEDICAL PROBLEM - General Chief Complaint: Gastrointestinal Problem Stated Complaint: VOMITING Time Seen by Provider: 04/12/17 22:57 Source of Information: Reports: Patient History Limitations: Reports: No Limitations - History of Present Illness INITIAL COMMENTS - FREE TEXT/NARRATIVE: 26-year-old female presents to the ED with intractable nausea and vomiting starting about 1600 hrs. today. Patient underwent laparoscopic removal of multiple pelvic adhesions by Dr. Hal Francois yesterday. She had to come back to the emergency room last night he couldn't of urinary retention and was catheterized and allowed home. She states she's been voiding adequately today. No fever or chills. She has developed intractable nausea and vomiting since 1600 hrs. Every time she tries to drink anything, it comes back up. She states she is still passing flatus per rectum but no formal bowel movement since surgery.. Patient has had previous total abdominal hysterectomy and BSO because of endometriosis. She was not told that there was any recurrence of endometriosis on laparoscopic examination yesterday just release of adhesions. She is taking Percocet tablets for pain but she can keep them down. Onset: Today Onset Date: 04/12/17 Onset Time: 16:00 Duration: Hour(s): Location: Reports: Abdomen (Tractable nausea and vomiting. Bilious emesis), Other (Abdominal pain at surgical site as well as epigastrium from so much vomiting.) Quality: Reports: Ache, Burning, Stabbing, Throbbing Severity: Moderate Improves with: Reports: None Worsens with: Reports: Eating (20 to drink or eat makes her vomit immediately.) Context: Reports: Other (Laparoscopic surgery done yesterday for release of pelvic adhesions.). Denies: Activity, Exercise, Lifting, Sick Contact Associated Symptoms: Reports: Fever/Chills, Loss of Appetite, Malaise, Nausea/ Vomiting (Chills with no fever), Weakness, Other (Dizzy when she started to walk or stand up). 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: Other (see below) Abdomen Pain Score (Numeric/FACES): 9 - Related Data Allergies Allergy/AdvReac Type Severity Reaction Status Date / Time Penicillins Allergy Hives Verified 04/12/17 22:47 prednisone Allergy Hives Verified 04/12/17 22:47 Sulfa (Sulfonamide Allergy Anaphylactic Verified 04/12/17 22:47 Antibiotics) Shock vancomycin Allergy Anaphylactic Verified 04/12/17 22:47 Shock azithromycin AdvReac Abdominal Verified 04/12/17 22:47 Pain lorazepam [From Ativan] AdvReac Anxiety Verified 04/12/17 22:47 meperidine [From Demerol] AdvReac Agitation Verified 04/12/17 22:47 meperidine HCl [From Demerol] AdvReac Anxiety Verified 04/12/17 22:47 propoxyphene AdvReac Anxiety Verified 04/12/17 22:47 [From Darvocet-N] Home Meds: Home Meds Estradiol 1.5 mg PO DAILY 10/30/15 [History] ClonazePAM [KlonoPIN] 0.5 mg PO Q4H PRN 09/17/16 [History] DULoxetine [Cymbalta] 120 mg PO DAILY 09/17/16 [History] Diclofenac Sodium [Voltaren 1% Gel] 1 applic TOP QID 04/07/17 [History] Gabapentin [Neurontin] 100 mg PO TID 04/07/17 [History] Lactobacillus Acidophilus [Probiotic] 1 cap PO DAILY 04/07/17 [History] Linaclotide [Linzess] 145 mg PO DAILY 04/07/17 [History] Ondansetron [Ondansetron ODT] 8 mg PO TID 04/07/17 [History] Vortioxetine Hydrobromide [Trintellix] 10 mg PO DAILY 04/07/17 [History] Ibuprofen 600 mg PO Q6H PRN #60 tablet 04/11/17 [Rx] Nitrofurantoin Monohyd/M-Cryst [Macrobid 100 mg Capsule] 1 cap PO Q12H #9 capsule 04/11/17 [Rx] oxyCODONE HCl/Acetaminophen [Percocet 5-325 mg Tablet] 1 - 2 each PO Q6H PRN # 20 tablet 04/11/17 [Rx] Past Medical History HEENT History: Reports: Allergic Rhinitis, Impaired Vision, Sinusitis Cardiovascular History: Reports: High Cholesterol, Other (See Below) Other Cardiovascular History: tachycardia Respiratory History: Reports: Asthma Gastrointestinal History: Reports: Irritable Bowel Syndrome, Other (See Below) Other Gastrointestinal History: elevated LFTs, RUQ pain Genitourinary History: Reports: None, Renal Calculus, UTI, 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 Other OB/BYN History: 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 Musculoskeletal History: Reports: Fibromyalgia, Other (See Below) Other Musculoskeletal History: chronic pain Neurological History: Reports: None Psychiatric History: Reports: Anxiety, Depression Endocrine/Metabolic History: Reports: Vitamin D Deficiency Hematologic History: Reports: None Immunologic History: Reports: None Oncologic (Cancer) History: Reports: None - Infectious Disease History Infectious Disease History: Reports: Chicken Pox, MRSA, Shingles Other Infectious Disease History: 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 - Past Surgical History Head Surgeries/Procedures: Reports: None HEENT Surgical History: Reports: Tonsillectomy Respiratory Surgical History: Reports: None GI Surgical History: Reports: Appendectomy, Cholecystectomy, Colonoscopy, EGD Other GI Surgeries/Procedures: perotonitis, n/v Female Surgical History: Reports: Hysterectomy, Salpingo-Oophorectomy, Other (See Below) Other Female Surgeries/Procedures: radical hysterectomy Endocrine Surgical History: Reports: None Neurological Surgical History: Reports: None Oncologic Surgical History: Reports: None Dermatological Surgical History: Reports: None Social & Family History - Family History Family Medical History: Noncontributory Cardiac: Reports: CAD Endocrine/Metabolic: Reports: Diabetes, type II, Osteoporosis - Tobacco Use Smoking Status *Q: Never Smoker Used Tobacco, but Quit: No Second Hand Smoke Exposure: No - Caffeine Use Caffeine Use: Reports: None Other Caffeine Use: daily - Alcohol Use Days Per Week of Alcohol Use: 0 Number of Drinks Per Day: 0 Total Drinks Per Week: 0 - Recreational Drug Use Recreational Drug Use: No Drug Use in Last 12 Months: Yes Recreational Drug Type: Reports: Marijuana/Hashish (in past) Recreational Drug Use Frequency: Daily - Living Situation & Occupation Living situation: Reports: with Significant Other Occupation: Unemployed ED ROS GENERAL - Review of Systems Review Of Systems: See Below Constitutional: Reports: Chills, Malaise, Weakness, Fatigue, Decreased Appetite , Weight Loss HEENT: Reports: No Symptoms, Other (Dizziness with standing up). Denies: Vertigo Respiratory: Reports: No Symptoms Cardiovascular: Reports: No Symptoms Endocrine: Reports: Fatigue GI/Abdominal: Reports: Abdominal Pain (Both from surgical incision site as well as recurrent vomiting.), Nausea, Vomiting (Intractable nausea and vomiting with bilious emesis and dry heaves since 4:00 today.) : Reports: Other (She feels she is emptying her bladder completely since catheterization last night.) Musculoskeletal: Reports: No Symptoms Skin: Reports: No Symptoms Neurological: Reports: Dizziness (With standing.) Hematologic/Lymphatic: Reports: No Symptoms Immunologic: Reports: No Symptoms ED EXAM, GI/ABD - Physical Exam Exam: See Below Exam Limited By: No Limitations General Appearance: Alert, WD/WN, Moderate Distress (Current dry heaves. Extremely palate in color.) Eyes: Bilateral: Normal Appearance (No jaundice.) Throat/Mouth: Normal Inspection, Normal Lips, Normal Oropharynx, Other Head: Atraumatic, Normocephalic (Tongue is a little dry.) Neck: Normal Inspection, Supple, Non-Tender, Full Range of Motion. No: Lymphadenopathy (L), Lymphadenopathy (R) Respiratory/Chest: Lungs Clear, Normal Breath Sounds (Mild tachypnea at rest.), No Accessory Muscle Use, Chest Non-Tender, Respiratory Distress Cardiovascular: Normal Peripheral Pulses, Regular Rate, Rhythm, No Edema, No Gallop, No Murmur GI/Abdominal Exam: Guarding, Other (Occasional bowel sound identified. Laparoscopic wounds look good. Of course generalized abdominal tenderness to the surgical site wounds and in the epigastrium.). No: Rigid, Rebound Back Exam: Normal Inspection, Full Range of Motion. No: CVA Tenderness (L), CVA Tenderness (R) Extremities: Normal Inspection, Normal Range of Motion, Non-Tender, No Pedal Edema, Normal Capillary Refill Neurological: Alert, Oriented, CN II-XII Intact, Normal Cognition Psychiatric: Normal Affect, Normal Mood Skin Exam: Warm, Dry, Intact, Pallor (Moderate) Course - Vital Signs Last Recorded V/S: Last Vital Signs Temp 36.3 C 04/12/17 22:42 Pulse 86 04/12/17 22:42 Resp 20 04/12/17 22:42 BP 132/94 H 04/12/17 22:42 Pulse Ox 99 04/12/17 22:42 - Orders/Labs/Meds Orders: Active Orders 24 hr Category Date Time Status Abdomen 1V Flat [CR] Stat Exams 04/12/17 22:58 Taken Dextrose 5%-0.9% NaCl [Dextrose 5%-Normal Saline] 1,000 Med 04/12/17 23:00 Active ml IV ASDIRECTED Medication Orders Dextrose/Sodium Chloride (Dextrose 5%-Normal Saline) 1,000 mls @ 999 mls/hr IV ASDIRECTED POP Last Admin: 04/13/17 00:00 Dose: 999 mls/hr Labs: Laboratory Tests 04/12/17 04/12/17 Range/Units 23:52 23:52 WBC 8.12 (3.98-10.04) K/mm3 RBC 4.13 (3.98-5.22) M/mm3 Hgb 12.3 (11.2-15.7) gm/L Hct 36.3 (34.1-44.9) % MCV 87.9 (79.4-94.8) fl MCH 29.8 (25.6-32.2) pg MCHC 33.9 (32.2-35.5) g/dl RDW Std Deviation 37.8 (36.4-46.3) fL Plt Count 245 (182-369) K/mm3 MPV 11.0 (9.4-12.3) fl Neutrophils % (Manual) 89 H (40-60) % Band Neutrophils % 0 (0-10) % Lymphocytes % (Manual) 10 L (20-40) % Atypical Lymphs % 0 % Monocytes % (Manual) 1 L (2-10) % Eosinophils % (Manual) 0 L (0.7-5.8) % Basophils % (Manual) 0 L (0.1-1.2) Platelet Estimate Adequate RBC Morph Comment Normal Sodium 140 (136-145) mEq/L Potassium 3.9 (3.5-5.1) mEq/L Chloride 105 (98-107) mEq/L Carbon Dioxide 23 (21-32) mEq/L Anion Gap 15.9 H (5-15) BUN 10 (7-18) mg/dL Creatinine 0.8 (0.55-1.02) mg/dL Est Cr Clr Drug Dosing 95.89 mL/min Estimated GFR (MDRD) > 60 (>60) mL/min BUN/Creatinine Ratio 12.5 L (14-18) Glucose 108 H (74-106) mg/dL Calcium 8.8 (8.5-10.1) mg/dL Total Bilirubin 0.4 (0.2-1.0) mg/dL AST 31 (15-37) U/L ALT 40 (14-59) U/L Alkaline Phosphatase 86 (46-116) U/L C-Reactive Protein < 0.2 (<1.0) mg/dL Total Protein 7.0 (6.4-8.2) g/dl Albumin 3.7 (3.4-5.0) g/dl Globulin 3.3 gm/dL Albumin/Globulin Ratio 1.1 (1-2) Lipase 115 (73-393) U/L Meds: Medications Generic Name Dose Route Start Last Admin Trade Name Freq PRN Reason Stop Dose Admin Dextrose/Sodium Chloride 1,000 mls @ 999 mls/hr 04/12/17 23:00 04/13/17 00:00 Dextrose 5%-Normal Saline IV 999 mls/hr ASDIRECTED POP Administration Discontinued Medications Generic Name Dose Route Start Last Admin Trade Name Freq PRN Reason Stop Dose Admin Hydromorphone HCl 0.5 mg 04/12/17 23:05 04/13/17 00:01 Dilaudid IVPUSH 04/12/17 23:06 0.5 mg ONETIME ONE Administration Metoclopramide HCl 7.5 mg 04/12/17 23:04 04/13/17 00:01 Reglan IVPUSH 04/12/17 23:05 7.5 mg ONETIME ONE Administration - Radiology Interpretation Free Text/Narrative:: 26-year-old female who underwent laparoscopic abdominal surgery for release of adhesions yesterday presents to the ED with intractable nausea and vomiting since 4:00 yesterday afternoon. She was in the ED last night because she developed acute urinary retention postoperatively. She reports she's been voiding adequately since surgery. She's been taking Percocet tablets for pain relief but nothing will stay down of course and 1600 hrs. She is retching and dry heaving. Initial emesis was bilious. Plan IV D5 normal saline at open. Reglan 7.5 mg IV Dilaudid 0.5 mg IV for pain relief. KUB to be done to rule out an ileus. Routine labs to include a serum lipase. - Re-Assessments/Exams Free Text/Narrative Re-Assessment/Exam: 04/12/17 : KUB reveals increased stool in the rectal vault and and descending colon but no sign of any bowel obstruction. Ileus either. 04/13/17 00:43 Labs reveal a total white count of 8.12 with 89% neutrophils and no bands. Hemoglobin is 12.3 hematocrit is 36.3. Platelet count is 245,000. Sodium is 140. Potassium 3.9. Toward 105 bicarbonate 23. And a gap is minimally elevated at 15.9. BUN is 10 with a creatinine of 0.8. Glucose is 108. Calcium is 8.8. Bilirubin is 0.4 AST is 31. ALT is 40. C-reactive protein is less than 0.2. Lipase is 1:15. 04/13/17 00:59 patient be discharged home once she completes the full liter of IV fluids. I strongly suspect the Percocet tablets are the cause of her nausea and vomiting. She will try Motrin only now for pain relief. She did receive 1 Macrobid 100 mg tablet last night because of gram-negative rods appreciated in her urinalysis. Her labs don't support any signs of an infective process and therefore no further antibiotics are indicated at this time 04/13/17 01:19 patient not only received a dose of Macrobid last night she was placed on a prescription for the medicine for 7 days. Therefore it too could be the culprit in terms of causing intractable nausea and vomiting. Plan will be to discontinue this. The urine culture initially is growing out gram-negative rods. I will place her on Omnicef 300 mg once daily for 6 days. She will discontinue the Macrobid and the Percocet. Follow up with Dr. Francois if any further prongs occur. Departure - Departure Time of Disposition: 00:59 Disposition: Home, Self-Care 01 Condition: Fair Clinical Impression: Urinary tract infection, Adverse effects of medication Intractable nausea and vomiting Qualifiers: Vomiting type: unspecified Qualified Code(s): R11.2 - Nausea with vomiting, unspecified - Discharge Information Instructions: Nausea, Adult Referrals: Paige Coleman PA [Primary Care Provider] - Forms: ED Department Discharge Additional Instructions: Evaluation the emergency room tonight in regards to intractable nausea and vomiting starting at 4:00 yesterday afternoon. Nothing would stay down. Recent laparoscopic surgery for release of adhesions the day prior. He did receive 1 Macrobid tablet orally after urine catheterization yesterday. It is prone to causing nausea but it should've done it within a few hours of taking the tablet. I strongly suspect the Percocet tablets may be causing nausea and vomiting. Also discontinued the Macrobid since it can also cause nausea and vomiting. To be replaced with Omnicef 300 mg tablet once daily for 6 days. Suggest it is okay now to switch to Motrin 600 mg every 6 hours as needed for pain relief. Continue Zofran 4 mg under the tongue if needed every 4-6 hours for nausea or vomiting relief. Plenty of fluids tomorrow such as Gatorade or Powerade to maintain hydration. Lab work done in the ED was all within normal limits. Also x-ray of the abdomen shows stool in the descending colon rectal vault but no sign of bowel obstruction. Follow-up with Dr. Francois if any further problems occur - My Orders Last 24 Hours: My Active Orders 04/12/17 22:58 Abdomen 1V Flat [CR] Stat 04/12/17 23:00 Dextrose 5%-0.9% NaCl [Dextrose 5%-Normal Saline] 1,000 ml IV ASDIRECTED - Assessment/Plan Last 24 Hours: My Active Orders 04/12/17 22:58 Abdomen 1V Flat [CR] Stat 04/12/17 23:00 Dextrose 5%-0.9% NaCl [Dextrose 5%-Normal Saline] 1,000 ml IV ASDIRECTED
[2017-04-12] MEDS ORDERED: Dextrose 5%-0.9% NaCl 1,000 ML IV SCH (23:00)
[2017-04-12] MEDS ORDERED: Metoclopramide 10 MG/2 ML SDV IVPUSH ONE (23:04)
[2017-04-12] MEDS ORDERED: HYDROmorphone 0.5 MG/0.5 ML Syringe IVPUSH ONE (23:05)
--- NOTE | 2017-04-13 11:14 | CR ---
Abdomen: Supine view of the abdomen was obtained. Comparison: Prior abdominal x-ray of 01/12/16. Surgical clips are seen within the left side of the pelvis. Calcifications are seen within the lower left pelvis likely due to phleboliths. Bowel gas pattern is normal. Bony structures appear within normal limits for the patient's age. Impression: 1. Incidental findings. Nothing acute is seen. Diagnostic code #2
== END 2017-04-13 01:17 | disposition home or self-care (01) ==
LOC: JD.ED 22:18
DX: N39.0 Urinary tract infection, site not specified (principal); R11.2 Nausea with vomiting, unspecified; T50.905A Adverse effect of unspecified drugs, medicaments and biological substances, initial encounter; E78.00 Pure hypercholesterolemia, unspecified; F32.9 Major depressive disorder, single episode, unspecified; Z79.899 Other long term (current) drug therapy; Z88.0 Allergy status to penicillin; Z88.1 Allergy status to other antibiotic agents; Z88.2 Allergy status to sulfonamides; Z88.5 Allergy status to narcotic agent; Z88.8 Allergy status to other drugs, medicaments and biological substances
CPT/HCPCS: 36415; 74018; 80053; 83690; 85025; 86140; 96361; 96374; 96375; 99284; J1170; J2765; J7042

== ENCOUNTER 2017-05-08 07:34 | Emergency (ER) | payer BC ==
[2017-05-08 07:44] VITALS: BP 127/105
[2017-05-08] MEDS ORDERED: Ondansetron 4 MG/2 ML SDV IVPUSH ONE ×2 (07:45→09:38)
[2017-05-08] MEDS ORDERED: Sodium Chloride 0.9% 1,000 ML IV ONE (07:45)
[2017-05-08] MEDS ORDERED: Sodium Chloride 0.9% 10 ML Syringe FLUSH PRN (07:55)
[2017-05-08] MEDS ORDERED: Famotidine 20 MG/2 ML SDV IVPUSH ONE (08:06)
--- NOTE | 2017-05-08 08:23 | EDM.PDOC ---
ED HPI GENERAL MEDICAL PROBLEM - General Chief Complaint: Abdominal Pain Stated Complaint: VOMITING AND DIARRHEA Time Seen by Provider: 05/08/17 07:55 Source of Information: Reports: Patient, RN Notes Reviewed - History of Present Illness INITIAL COMMENTS - FREE TEXT/NARRATIVE: 26-year-old female comes in with upper abdominal pain cramping, nausea, vomiting and diarrhea. This all started about 5 hours ago. She was feeling fine yesterday and last evening. She did eat out last evening at our local [employer] restaurant. She is extremely nauseated this morning. She has been vomiting repetitively and also having frequent repetitive watery diarrhea. She states her gallbladder and appendix have previously been surgically removed. She also has had previous hysterectomy. - Related Data Allergies Allergy/AdvReac Type Severity Reaction Status Date / Time Penicillins Allergy Hives Verified 05/08/17 07:42 prednisone Allergy Hives Verified 05/08/17 07:42 Sulfa (Sulfonamide Allergy Anaphylactic Verified 05/08/17 07:42 Antibiotics) Shock vancomycin Allergy Anaphylactic Verified 05/08/17 07:42 Shock azithromycin AdvReac Abdominal Verified 05/08/17 07:42 Pain lorazepam [From Ativan] AdvReac Anxiety Verified 05/08/17 07:42 meperidine [From Demerol] AdvReac Agitation Verified 05/08/17 07:42 meperidine HCl [From Demerol] AdvReac Anxiety Verified 05/08/17 07:42 propoxyphene AdvReac Anxiety Verified 05/08/17 07:42 [From Darvocet-N] Home Meds: Home Meds Estradiol 1.5 mg PO DAILY 10/30/15 [History] ClonazePAM [KlonoPIN] 0.5 mg PO Q4H PRN 09/17/16 [History] DULoxetine [Cymbalta] 120 mg PO DAILY 09/17/16 [History] Diclofenac Sodium [Voltaren 1% Gel] 1 applic TOP QID 04/07/17 [History] Gabapentin [Neurontin] 100 mg PO TID 04/07/17 [History] Lactobacillus Acidophilus [Probiotic] 1 cap PO DAILY 04/07/17 [History] Linaclotide [Linzess] 145 mg PO DAILY 04/07/17 [History] Ondansetron [Ondansetron ODT] 8 mg PO TID 04/07/17 [History] Vortioxetine Hydrobromide [Trintellix] 10 mg PO DAILY 04/07/17 [History] Ibuprofen 600 mg PO Q6H PRN #60 tablet 04/11/17 [Rx] Nitrofurantoin Monohyd/M-Cryst [Macrobid 100 mg Capsule] 1 cap PO Q12H #9 capsule 04/11/17 [Rx] oxyCODONE HCl/Acetaminophen [Percocet 5-325 mg Tablet] 1 - 2 each PO Q6H PRN # 20 tablet 04/11/17 [Rx] Ciprofloxacin HCl [Cipro] 500 mg PO Q12HR #7 tablet 05/08/17 [Rx] Ondansetron [Zofran ODT] 4 mg PO Q6H PRN #7 tab.dis 05/08/17 [Rx] Past Medical History HEENT History: Reports: Allergic Rhinitis, Impaired Vision, Sinusitis Cardiovascular History: Reports: High Cholesterol, Other (See Below) Other Cardiovascular History: tachycardia Respiratory History: Reports: Asthma Gastrointestinal History: Reports: Irritable Bowel Syndrome, Other (See Below) Other Gastrointestinal History: elevated LFTs, RUQ pain Genitourinary History: Reports: None, Renal Calculus, UTI, Recurrent [employer] History: Reports: Endometriosis Other OB/BYN History: 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 Musculoskeletal History: Reports: Fibromyalgia, Other (See Below) Other Musculoskeletal History: chronic pain Neurological History: Reports: None Psychiatric History: Reports: Anxiety, Depression Endocrine/Metabolic History: Reports: Vitamin D Deficiency Hematologic History: Reports: None Immunologic History: Reports: None Oncologic (Cancer) History: Reports: None - Infectious Disease History Infectious Disease History: Reports: Chicken Pox, MRSA, Shingles Other Infectious Disease History: 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 - Past Surgical History Head Surgeries/Procedures: Reports: None HEENT Surgical History: Reports: Tonsillectomy Respiratory Surgical History: Reports: None GI Surgical History: Reports: Appendectomy, Cholecystectomy, Colonoscopy, EGD Other GI Surgeries/Procedures: perotonitis, n/v Female Surgical History: Reports: Hysterectomy, Salpingo-Oophorectomy, Other (See Below) Other Female Surgeries/Procedures: radical hysterectomy Endocrine Surgical History: Reports: None Neurological Surgical History: Reports: None Oncologic Surgical History: Reports: None Dermatological Surgical History: Reports: None Social & Family History - Family History Family Medical History: Noncontributory Cardiac: Reports: CAD Endocrine/Metabolic: Reports: Diabetes, type II, Osteoporosis - Tobacco Use Smoking Status *Q: Never Smoker Used Tobacco, but Quit: No Second Hand Smoke Exposure: No - Caffeine Use Caffeine Use: Reports: None Other Caffeine Use: daily - Alcohol Use Days Per Week of Alcohol Use: 0 Number of Drinks Per Day: 0 Total Drinks Per Week: 0 - Recreational Drug Use Recreational Drug Use: No Drug Use in Last 12 Months: Yes Recreational Drug Type: Reports: Marijuana/Hashish (in past) Recreational Drug Use Frequency: Daily - Living Situation & Occupation Living situation: Reports: with Significant Other Occupation: Unemployed ED ROS GENERAL - Review of Systems Review Of Systems: See Below Constitutional: Reports: Chills. Denies: Fever HEENT: Denies: Throat Pain Respiratory: Denies: Shortness of Breath, Pleuritic Chest Pain Cardiovascular: Denies: Chest Pain GI/Abdominal: Reports: Abdominal Pain, Diarrhea, Nausea, Vomiting Skin: Reports: No Symptoms Neurological: Reports: Dizziness ED EXAM, GI/ABD - Physical Exam Exam: See Below General Appearance: Alert, Anxious, Moderate Distress Throat/Mouth: Other (oral mucosa dry) Neck: Supple Respiratory/Chest: No Respiratory Distress, Lungs Clear, Normal Breath Sounds Cardiovascular: Tachycardia GI/Abdominal Exam: Tender (Upper mid abdomen and right upper quadrant) Back Exam: No: CVA Tenderness (L), CVA Tenderness (R) Extremities: Normal Inspection, Normal Range of Motion Neurological: Alert, No Motor/Sensory Deficits Skin Exam: Warm, Dry, Normal Color Course - Vital Signs Last Recorded V/S: Last Vital Signs Temp 96.9 F 05/08/17 07:42 Pulse 101 H 05/08/17 07:42 Resp 18 05/08/17 07:42 BP 127/105 H 05/08/17 07:42 Pulse Ox 100 05/08/17 07:42 - Orders/Labs/Meds Orders: Active Orders 24 hr Category Date Time Status Peripheral IV Care [RC] . DIRECTED Care 05/08/17 07:56 Active Peripheral IV Insertion Adult [OM.PC] Stat Oth 05/08/17 07:56 Ordered Labs: Laboratory Tests 05/08/17 05/08/17 Range/Units 08:05 08:45 WBC 12.42 H (3.98-10.04) K/mm3 RBC 4.32 (3.98-5.22) M/mm3 Hgb 12.7 (11.2-15.7) gm/L Hct 37.2 (34.1-44.9) % MCV 86.1 (79.4-94.8) fl MCH 29.4 (25.6-32.2) pg MCHC 34.1 (32.2-35.5) g/dl RDW Std Deviation 38.8 (36.4-46.3) fL Plt Count 295 (182-369) K/mm3 MPV 11.3 (9.4-12.3) fl Neut % (Auto) 82.7 H (34.0-71.1) % Lymph % (Auto) 14.5 L (19.3-51.7) % [place] % (Auto) 2.2 L (4.7-12.5) % Eos % (Auto) 0.2 L (0.7-5.8) Baso % (Auto) 0.2 (0.1-1.2) % Neut # (Auto) 10.29 H (1.56-6.13) K/mm3 Lymph # (Auto) 1.80 (1.18-3.74) K/mm3 [place] # (Auto) 0.27 (0.24-0.36) K/mm3 Eos # (Auto) 0.02 L (0.04-0.36) K/mm3 Baso # (Auto) 0.02 (0.01-0.08) K/mm3 Sodium 144 (136-145) mEq/L Potassium 3.5 (3.5-5.1) mEq/L Chloride 108 H (98-107) mEq/L Carbon Dioxide 18 L (21-32) mEq/L Anion Gap 21.5 H (5-15) BUN 15 (7-18) mg/dL Creatinine 0.7 (0.55-1.02) mg/dL Est Cr Clr Drug Dosing 114.01 mL/min Estimated GFR (MDRD) > 60 (>60) mL/min BUN/Creatinine Ratio 21.4 H (14-18) Glucose 97 (74-106) mg/dL Calcium 8.6 (8.5-10.1) mg/dL Total Bilirubin 0.3 (0.2-1.0) mg/dL AST 30 (15-37) U/L ALT 81 H (14-59) U/L Alkaline Phosphatase 76 (46-116) U/L Total Protein 7.3 (6.4-8.2) g/dl Albumin 4.0 (3.4-5.0) g/dl Globulin 3.3 gm/dL Albumin/Globulin Ratio 1.2 (1-2) Meds: Medications Discontinued Medications Generic Name Dose Route Start Last Admin Trade Name Freq PRN Reason Stop Dose Admin Famotidine 20 mg 05/08/17 08:06 05/08/17 08:15 Pepcid IVPUSH 05/08/17 08:07 20 mg ONETIME ONE Administration Sodium Chloride 1,000 mls @ 999 mls/hr 05/08/17 07:45 05/08/17 08:08 Normal Saline IV 05/08/17 08:45 999 mls/hr ONETIME ONE Administration Sodium Chloride 1,000 mls @ 999 mls/hr 05/08/17 09:45 05/08/17 09:47 Normal Saline IV 999 mls/hr ONETIME POP Administration Metoclopramide HCl 5 mg 05/08/17 08:58 05/08/17 09:03 Reglan IVPUSH 05/08/17 08:59 5 mg ONETIME ONE Administration Metoclopramide HCl 5 mg 05/08/17 10:22 05/08/17 10:50 Reglan IVPUSH 05/08/17 10:23 5 mg ONETIME ONE Administration Ondansetron HCl 4 mg 05/08/17 07:45 05/08/17 08:06 Zofran IVPUSH 05/08/17 07:46 4 mg ONETIME ONE Administration Ondansetron HCl 4 mg 05/08/17 09:38 05/08/17 09:47 Zofran IVPUSH 05/08/17 09:39 4 mg ONETIME ONE Administration Promethazine HCl 25 mg 05/08/17 11:06 05/08/17 11:37 Phenergan IM 05/08/17 11:07 25 mg ONETIME ONE Administration Sodium Chloride 10 ml 05/08/17 07:55 05/08/17 08:13 Saline Flush FLUSH 10 ml ASDIRECTED PRN Administration Keep Vein Open - Re-Assessments/Exams Free Text/Narrative Re-Assessment/Exam: 05/08/17 09:45. Feeling better but still nauseated, will repeat the Zofran 4 mg IV. Labs showed that she was very dehydrated with bicarbonate down anion gap up. Have given 1 L of fluid her mouth is still dry, will give a second liter and than see where we are at from a hydration standpoint. 05/08/17 14:25. Patient was feeling better at time of discharge, discharge instructions as documented Departure - Departure Time of Disposition: 10:44 Disposition: Home, Self-Care 01 Condition: Fair Clinical Impression: Abdominal pain Qualifiers: Abdominal location: unspecified location Qualified Code(s): R10.9 - Unspecified abdominal pain Diarrhea Qualifiers: Diarrhea type: unspecified type Qualified Code(s): R19.7 - Diarrhea, unspecified Vomiting Qualifiers: Vomiting type: unspecified Vomiting Intractability: non-intractable Nausea presence: with nausea Qualified Code(s): R11.2 - Nausea with vomiting, unspecified - Discharge Information Prescriptions: Ciprofloxacin HCl [Cipro] 500 mg PO Q12HR #7 tablet Ondansetron [Zofran ODT] 4 mg PO Q6H PRN #7 tab.dis PRN Reason: Nausea/Vomiting Instructions: Diarrhea, Adult, Abdominal Pain, Adult, [id number], Nausea and Vomiting, Adult Referrals: Paige Coleman PA [Primary Care Provider] - Forms: ED Department Discharge Additional Instructions: Clear liquids until this evening, then very careful bland diet as tolerated. Cipro antibiotic 500 mg twice daily for 3-1/2 days. Zofran every 6-8 hours if needed for further nausea or vomiting, also would be helpful to begin probiotic and take that 3 times daily for about 5 days. Follow up clinic if not much better within 1-2 days as expected, return to ED if symptoms worsening in any way. - My Orders Last 24 Hours: My Active Orders 05/08/17 07:56 Peripheral IV Care [RC] . DIRECTED Peripheral IV Insertion Adult [OM.PC] Stat - Assessment/Plan Last 24 Hours: My Active Orders 05/08/17 07:56 Peripheral IV Care [RC] . DIRECTED Peripheral IV Insertion Adult [OM.PC] Stat
[2017-05-08] MEDS ORDERED: Metoclopramide 10 MG/2 ML SDV IVPUSH ONE ×2 (08:58→10:22)
[2017-05-08] MEDS ORDERED: Sodium Chloride 0.9% 1,000 ML IV SCH (09:45)
[2017-05-08] MEDS ORDERED: Promethazine 25 MG/ML SDV IM ONE (11:06)
== END 2017-05-08 11:45 | disposition home or self-care (01) ==
LOC: JD.ED 07:34
DX: R10.11 Right upper quadrant pain (principal); R19.7 Diarrhea, unspecified; R11.2 Nausea with vomiting, unspecified; E78.00 Pure hypercholesterolemia, unspecified; Z88.0 Allergy status to penicillin; Z88.2 Allergy status to sulfonamides; Z88.1 Allergy status to other antibiotic agents; Z88.8 Allergy status to other drugs, medicaments and biological substances; Z79.899 Other long term (current) drug therapy; Z79.891 Long term (current) use of opiate analgesic
CPT/HCPCS: 36415; 80053; 85025; 96361; 96372; 96374; 96375; 96376; 99284; J2405; J2550; J2765; J7040; J7050

== ENCOUNTER 2017-06-28 00:23 | Emergency (ER) | payer BC ==
[2017-06-28 00:36] VITALS: BP 124/79
--- NOTE | 2017-06-28 00:46 | EDM.PDOC ---
ED HPI GENERAL MEDICAL PROBLEM - General Chief Complaint: Gastrointestinal Problem Stated Complaint: BAD STOMACH PAINS UNABLE TO KEEP ANYTHING DOWN Time Seen by Provider: 06/28/17 00:46 Source of Information: Reports: Patient History Limitations: Reports: No Limitations - History of Present Illness INITIAL COMMENTS - FREE TEXT/NARRATIVE: 27-year-old female presents to the ED primarily due to recurrent nausea and vomiting and severe diarrhea over the last 24 hours. She reports illness started 2 days ago with sudden onset of fever chills headache and diffuse myalgia with a nonproductive cough. Within 24 hours of those symptoms she started to develop nausea vomiting and diffuse large volume yellow water stool losses. She believes she is gone at least 20 times in the last 20 hours. Denies being on any antibiotics in the last month. She's feeling lightheaded dizzy and weak. Still has a significant headache. States no position is comfortable due to the generalized myalgia. Clinically she has signs and symptoms of influenza type B. Onset: Sudden Onset Date: 06/26/17 Duration: Day(s):, Getting Worse Location: Reports: Chest (Generalized myalgia with headache paroxysmal nonproductive cough.), Abdomen (Nausea vomiting and profuse large-volume watery stool losses.), Generalized Quality: Reports: Ache, Other (No persistent nausea vomiting and diarrhea) Severity: Moderate (Everywhere) Improves with: Reports: None Worsens with: Reports: None Context: Reports: Other (No known sick contact.). Denies: Activity, Exercise, Lifting, Sick Contact, Trauma Associated Symptoms: Reports: Cough, Diaphoresis, Fever/Chills, Headaches, Loss of Appetite, Malaise (Nonproductive), Nausea/Vomiting, Weakness, Other (Diarrhea ). Denies: Confusion, Chest Pain, cough w sputum Treatments [employer]: Reports: Other (see below) (No medications will stay down.) abdomen, back, legs Pain Score (Numeric/FACES): 7 - Related Data Allergies Allergy/AdvReac Type Severity Reaction Status Date / Time Penicillins Allergy Hives Verified 06/28/17 00:36 prednisone Allergy Hives Verified 06/28/17 00:36 Sulfa (Sulfonamide Allergy Anaphylactic Verified 06/28/17 00:36 Antibiotics) Shock vancomycin Allergy Anaphylactic Verified 06/28/17 00:36 Shock azithromycin AdvReac Abdominal Verified 06/28/17 00:36 Pain lorazepam [From Ativan] AdvReac Anxiety Verified 06/28/17 00:36 meperidine [From Demerol] AdvReac Agitation Verified 06/28/17 00:36 meperidine HCl [From Demerol] AdvReac Anxiety Verified 06/28/17 00:36 propoxyphene AdvReac Anxiety Verified 06/28/17 00:36 [From Darvocet-N] Home Meds: Home Meds Estradiol 1.5 mg PO DAILY 10/30/15 [History] ClonazePAM [KlonoPIN] 0.5 mg PO Q4H PRN 09/17/16 [History] Diclofenac Sodium [Voltaren 1% Gel] 1 applic TOP QID 04/07/17 [History] Gabapentin [Neurontin] 300 mg PO BID 04/07/17 [History] Lactobacillus Acidophilus [Probiotic] 1 cap PO DAILY 04/07/17 [History] Linaclotide [Linzess] 145 mg PO DAILY 04/07/17 [History] Vortioxetine Hydrobromide [Trintellix] 10 mg PO DAILY 04/07/17 [History] Ibuprofen 600 mg PO Q6H PRN #60 tablet 04/11/17 [Rx] Ciprofloxacin HCl [Cipro] 500 mg PO BID #16 tablet 06/28/17 [Rx] Dicyclomine [Bentyl] 20 mg PO Q6H PRN #5 tablet 06/28/17 [Rx] Ondansetron [Zofran] 4 mg BUCCAL Q6H PRN #6 tab 06/28/17 [Rx] Venlafaxine [Effexor] 150 mg PO DAILY 06/28/17 [History] Past Medical History HEENT History: Reports: Allergic Rhinitis, Impaired Vision, Sinusitis Cardiovascular History: Reports: High Cholesterol, Other (See Below) Other Cardiovascular History: tachycardia Respiratory History: Reports: Asthma Gastrointestinal History: Reports: Irritable Bowel Syndrome, Other (See Below) Other Gastrointestinal History: elevated LFTs, RUQ pain Genitourinary History: Reports: None, Renal Calculus, UTI, Recurrent [employer] History: Reports: Endometriosis Other OB/BYN History: 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 Musculoskeletal History: Reports: Fibromyalgia, Other (See Below) Other Musculoskeletal History: chronic pain Neurological History: Reports: None Psychiatric History: Reports: Anxiety, Depression Endocrine/Metabolic History: Reports: Vitamin D Deficiency Hematologic History: Reports: None Immunologic History: Reports: None Oncologic (Cancer) History: Reports: None - Infectious Disease History Infectious Disease History: Reports: Chicken Pox, MRSA, Shingles Other Infectious Disease History: 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 She has pelvic and bladder involvement. Endocrine Surgical History: Reports: None Neurological Surgical History: Reports: None Oncologic Surgical History: Reports: None Dermatological Surgical History: Reports: None Social & Family History - Family History Family Medical History: Noncontributory Cardiac: Reports: CAD Endocrine/Metabolic: Reports: Diabetes, type II, Osteoporosis - Tobacco Use Smoking Status *Q: Never Smoker Used Tobacco, but Quit: No Second Hand Smoke Exposure: No - Caffeine Use Caffeine Use: Reports: Soda Other Caffeine Use: daily - Alcohol Use Days Per Week of Alcohol Use: 0 Number of Drinks Per Day: 0 Total Drinks Per Week: 0 - Recreational Drug Use Recreational Drug Use: No Drug Use in Last 12 Months: Yes Recreational Drug Type: Reports: Marijuana/Hashish (in past) Recreational Drug Use Frequency: Daily - Living Situation & Occupation Living situation: Reports: with Significant Other Occupation: Unemployed ED ROS GENERAL - Review of Systems Review Of Systems: See Below Constitutional: Reports: Fever, Chills, Malaise, Weakness, Fatigue, Decreased Appetite, Weight Loss HEENT: Reports: Throat Pain (From vomiting) Respiratory: Reports: Cough (Rocks is mobile mostly nonproductive cough.) Cardiovascular: Reports: Chest Pain Endocrine: Reports: Fatigue (Only from coughing.) GI/Abdominal: Reports: Abdominal Pain, Diarrhea (Profuse large-volume yellow watery stool losses 20 times in the last 24 hours), Decreased Appetite, Nausea, Vomiting (Intractable nausea and vomiting 24 hours) : Reports: Dysuria, Frequency Musculoskeletal: Reports: Muscle Pain Skin: Reports: No Symptoms (Generalized myalgia.) Neurological: Reports: Dizziness, Headache (Especially with standing so she with onset of illness 2 days ago.), Difficulty Walking (Due to weakness) Psychiatric: Reports: No Symptoms Hematologic/Lymphatic: Reports: No Symptoms Immunologic: Reports: No Symptoms ED EXAM, GI/ABD - Physical Exam Exam: See Below Exam Limited By: No Limitations General Appearance: Alert, WD/WN, Moderate Distress (Appears ill. Afebrile at this time) Eyes: Bilateral: Normal Appearance Ears: Normal TMs Throat/Mouth: Normal Inspection, Normal Lips, Normal Teeth, Normal Oropharynx Head: Atraumatic, Normocephalic Neck: Normal Inspection, Supple, Non-Tender, Full Range of Motion. No: Carotid Bruit, Lymphadenopathy (L) Respiratory/Chest: No Respiratory Distress, Lungs Clear, Normal Breath Sounds, No Accessory Muscle Use, Chest Non-Tender, Respiratory Distress (Mild tachypnea at rest.). No: Rhonchi, Wheezing Cardiovascular: Normal Peripheral Pulses, Regular Rate, Rhythm, No Edema, No Gallop, No Murmur, No Rub GI/Abdominal Exam: Non-Tender, No Organomegaly, No Abnormal Bruit, No Mass, Pelvis Stable, Tender (Suprapubically.), Abnormal Bowel Sounds (Bowel sounds are very active in all 4 quadrants.), Other (Surgical scars evident.) Back Exam: Normal Inspection, Full Range of Motion, CVA Tenderness (L) (Mild to moderate). No: CVA Tenderness (R) Extremities: Normal Inspection, Normal Range of Motion, Non-Tender, No Pedal Edema Neurological: Alert, Oriented, CN II-XII Intact, Normal Cognition Psychiatric: Normal Affect Skin Exam: Warm, Dry, Intact, Normal Color, No Rash, Other (Does feel mildly febrile on my assessment.) Course - Vital Signs Last Recorded V/S: Last Vital Signs Temp 37.3 C 06/28/17 06:09 Pulse 90 06/28/17 00:30 Resp 20 06/28/17 00:30 BP 124/79 06/28/17 00:30 Pulse Ox 100 06/28/17 00:30 - Orders/Labs/Meds Orders: Active Orders 24 hr Category Date Time Status CULTURE STOOL + SHIGATOX [RM] Stat Lab 06/28/17 01:50 Received CULTURE URINE [] Stat Lab 06/28/17 01:00 Received Labs: Laboratory Tests 06/28/17 06/28/17 06/28/17 Range/Units 00:55 00:55 00:55 WBC 8.35 (3.98-10.04) K/mm3 RBC 4.20 (3.98-5.22) M/mm3 Hgb 12.4 (11.2-15.7) gm/L Hct 36.2 (34.1-44.9) % MCV 86.2 (79.4-94.8) fl MCH 29.5 (25.6-32.2) pg MCHC 34.3 (32.2-35.5) g/dl RDW Std Deviation 37.9 (36.4-46.3) fL Plt Count 278 (182-369) K/mm3 MPV 10.8 (9.4-12.3) fl Neutrophils % (Manual) 75 H (40-60) % Band Neutrophils % 0 (0-10) % Lymphocytes % (Manual) 22 (20-40) % Atypical Lymphs % 0 % Monocytes % (Manual) 2 (2-10) % Eosinophils % (Manual) 1 (0.7-5.8) % Basophils % (Manual) 0 L (0.1-1.2) Platelet Estimate Adequate RBC Morph Comment Normal Sodium 141 (136-145) mEq/L Potassium 3.9 (3.5-5.1) mEq/L Chloride 104 (98-107) mEq/L Carbon Dioxide 23 (21-32) mEq/L Anion Gap 17.9 H (5-15) BUN 12 (7-18) mg/dL Creatinine 0.7 (0.55-1.02) mg/dL Est Cr Clr Drug Dosing 108.63 mL/min Estimated GFR (MDRD) > 60 (>60) mL/min BUN/Creatinine Ratio 17.1 (14-18) Glucose 122 H (74-106) mg/dL Calcium 8.9 (8.5-10.1) mg/dL Total Bilirubin 0.3 (0.2-1.0) mg/dL AST 32 (15-37) U/L ALT 60 H (14-59) U/L Alkaline Phosphatase 92 (46-116) U/L C-Reactive Protein < 0.2 (<1.0) mg/dL Total Protein 7.8 (6.4-8.2) g/dl Albumin 4.3 (3.4-5.0) g/dl Globulin 3.5 gm/dL Albumin/Globulin Ratio 1.2 (1-2) Urine Color (Yellow) Urine Appearance (Clear) Urine pH (5.0-8.0) Ur Specific [place] (1.005-1.030) Urine Protein (Negative) Urine Glucose (UA) (Negative) Urine Ketones (Negative) Urine Occult Blood (Negative) Urine Nitrite (Negative) Urine Bilirubin (Negative) Urine Urobilinogen (0.2-1.0) Ur Leukocyte Esterase (Negative) Urine RBC (0-5) /hpf Urine WBC (0-5) /hpf Ur Epithelial Cells (0-5) /hpf Urine Bacteria (FEW) /hpf Urine Mucus (FEW) /hpf Ketones 0.24 (0.0-0.3) mM C.difficile [id number] C. difficile Tox (PCR) 06/28/17 06/28/17 Range/Units 01:00 01:50 WBC (3.98-10.04) K/mm3 RBC (3.98-5.22) M/mm3 Hgb (11.2-15.7) gm/L Hct (34.1-44.9) % MCV (79.4-94.8) fl MCH (25.6-32.2) pg MCHC (32.2-35.5) g/dl RDW Std Deviation (36.4-46.3) fL Plt Count (182-369) K/mm3 MPV (9.4-12.3) fl Neutrophils % (Manual) (40-60) % Band Neutrophils % (0-10) % Lymphocytes % (Manual) (20-40) % Atypical Lymphs % % Monocytes % (Manual) (2-10) % Eosinophils % (Manual) (0.7-5.8) % Basophils % (Manual) (0.1-1.2) Platelet Estimate RBC Morph Comment Sodium (136-145) mEq/L Potassium (3.5-5.1) mEq/L Chloride (98-107) mEq/L Carbon Dioxide (21-32) mEq/L Anion Gap (5-15) BUN (7-18) mg/dL Creatinine (0.55-1.02) mg/dL Est Cr Clr Drug Dosing mL/min Estimated GFR (MDRD) (>60) mL/min BUN/Creatinine Ratio (14-18) Glucose (74-106) mg/dL Calcium (8.5-10.1) mg/dL Total Bilirubin (0.2-1.0) mg/dL AST (15-37) U/L ALT (14-59) U/L Alkaline Phosphatase (46-116) U/L C-Reactive Protein (<1.0) mg/dL Total Protein (6.4-8.2) g/dl Albumin (3.4-5.0) g/dl Globulin gm/dL Albumin/Globulin Ratio (1-2) Urine Color Yellow (Yellow) Urine Appearance Clear (Clear) Urine pH 8.5 H (5.0-8.0) Ur Specific [place] 1.020 (1.005-1.030) Urine Protein 1+ H (Negative) Urine Glucose (UA) Negative (Negative) Urine Ketones Negative (Negative) Urine Occult Blood Negative (Negative) Urine Nitrite Negative (Negative) Urine Bilirubin Negative (Negative) Urine Urobilinogen 0.2 (0.2-1.0) Ur Leukocyte Esterase 1+ H (Negative) Urine RBC 0-5 (0-5) /hpf Urine WBC 10-20 H (0-5) /hpf Ur Epithelial Cells 10-20 H (0-5) /hpf Urine Bacteria Few (FEW) /hpf Urine Mucus Few (FEW) /hpf Ketones (0.0-0.3) mM C.difficile [id number] Presumptive negative C. difficile Tox (PCR) Negative Meds: Medications Discontinued Medications Generic Name Dose Route Start Last Admin Trade Name Jaycobq PRN Reason Stop Dose Admin Acetaminophen 975 mg 06/28/17 06:06 06/28/17 06:09 Tylenol PO 06/28/17 06:07 975 mg NOW ONE Administration Dextrose/Lactated Ringer's 1,000 mls @ 999 mls/hr 06/28/17 01:00 06/28/17 01: 05 Dextrose 5%-Lactated Ringers IV 999 mls/hr ASDIRECTED POP Administration Ceftriaxone Sodium 1 gm/ 100 mls @ 200 mls/hr 06/28/17 01:53 06/28/17 02:01 Sodium Chloride IV 06/28/17 02:22 200 mls/hr ONETIME ONE Administration Dextrose/Sodium Chloride 1,000 mls @ 300 mls/hr 06/28/17 02:45 06/28/17 02:39 Dextrose 5%-Normal Saline IV 300 mls/hr ASDIRECTED POP Administration Ketorolac Tromethamine 30 mg 06/28/17 01:00 06/28/17 01:05 Toradol IVPUSH 30 mg ONETIME POP Administration Ketorolac Tromethamine Confirm 06/28/17 01:09 06/28/17 01:07 Toradol Administered 06/28/17 01:10 Not Given Dose 30 mg .ROUTE .STK-MED ONE Meperidine HCl 50 mg 06/28/17 00:57 06/28/17 01:07 Demerol IVPUSH 06/28/17 00:58 Not Given ONETIME ONE Metoclopramide HCl 7.5 mg 06/28/17 00:57 06/28/17 01:05 Reglan IVPUSH 06/28/17 00:58 7.5 mg ONETIME ONE Administration Ondansetron HCl 4 mg 06/28/17 01:49 06/28/17 01:53 Zofran IVPUSH 06/28/17 01:50 4 mg ONETIME ONE Administration Ondansetron HCl 4 mg 06/28/17 05:21 06/28/17 05:27 Zofran IVPUSH 06/28/17 05:22 4 mg ONETIME ONE Administration - Radiology Interpretation Free Text/Narrative:: 27-year-old female presents the ED with a 2 day history of sudden onset of illness. History suggests development of jet generalized myalgia , associated headache paroxysmal nonproductive cough and anorexia. This would suggest influenza. Within 24 hours she started to develop intractable nausea vomiting and severe diarrhea. She estimates 20 bowel movements in the last 20 hours. No blood has been noted per rectum. This may be related to type be influenza virus. She is tender in the left costovertebral angle suggesting possible pyelonephritis as well. At present she is volume depleted. Plan influenza screen will be done with routine labs. IV will be D5 Ringer's lactate at open. Given Reglan 7.5 mg IV for nausea relief and Toradol 30 mg IV for headache and body ache relief Dilaudid 0.5 mg IV for relief of abdominal cramping pain. - Re-Assessments/Exams Free Text/Narrative Re-Assessment/Exam: 06/28/17 01:45 Labs are back revealing a normal white count at 8.35 with 75% neutrophils no bands reported. Hemoglobin is 12.4 with hematocrit of 36.2. Platelet count is 278,000. Sodium 141 with potassium of 3.9. Chloride 104 with a bicarbonate of 23. And a gap is elevated at 17.9. BUNs 12 with a creatinine of 0.7. Glucose is 122. Calcium is 8.9. Total bilirubin 0.3 AST is 32 ALT is mildly elevated at 60. At some point time she should have hepatitis C screen. Alk phosphatase is normal at 92. C-reactive protein is less than 0.2. Urinalysis shows 1+ leukocyte esterase with 10-20 WBCs per high-power field with 10-20 epithelial cells as well. This suggests possible pyelonephritis. Urine culture ordered. Influenza screen is negative. 06/28/17 01:50 patient is still having a good deal of nausea. We'll give her Zofran 4 mg IV. She reports she does not have any adverse effects to Rocephin. She'll therefore be given 1 g of Rocephin IV for suspect pyelonephritis. 06/28/17 02:37 patient has completed her first liter of IV fluids. Second liter will be D5 normal saline at 300 mils per hour. 06/28/17 04:03 patient has been able to fall asleep after the last dose of Zofran was given. She also tolerated the Rocephin 1 g intravenously without any allergic reaction. Plan will be to allow her to have a full second liter of IV fluids prior to discharge. She'll be discharged home on Zofran 4 mg sublingual every 4-6 hours needed for nausea. Bentyl 20 mg every 6 hours needed for abdominal cramping pain and diarrhea relief. Cipro 500 mg twice daily for 5 days on the suspicion that she has foodborne induced gastroenteritis. 06/28/17 06:08 has completed his second liter of IV fluids. She is feeling improved still is febrile on examination. Will give her 975 mg of Tylenol per ora for fever relief. She'll stay in the ED for another 20 minutes to have partly sure she can retain this medication. She still feels mild to moderate nausea at times. Departure - Departure Time of Disposition: 06:30 Disposition: Home, Self-Care 01 Condition: Fair Clinical Impression: Gastroenteritis Urinary tract infection Qualifiers: Urinary tract infection type: acute pyelonephritis Qualified Code(s): N10 - Acute pyelonephritis - Discharge Information Prescriptions: Ciprofloxacin HCl [Cipro] 500 mg PO BID #16 tablet Dicyclomine [Bentyl] 20 mg PO Q6H PRN #5 tablet PRN Reason: Abdominal cramps/diarrhea Ondansetron [Zofran] 4 mg BUCCAL Q6H PRN #6 tab PRN Reason: nausea or vomiting Instructions: Viral Gastroenteritis, Adult, [id number], Urinary Tract Infection, Adult, [id number] Referrals: Paige Coleman PA [Primary Care Provider] - Forms: ED Department Discharge Additional Instructions: Evaluation the emergency room today in regards to acute onset of febrile illness with chills and generalized body aches headache and paroxysmal nonproductive cough and loss of appetite 2 days ago. This was followed within 24 hours by the development of intractable nausea vomiting and prolific diarrhea. It appears that you have contracted 2 illnesses. The history and exam suggests that you have kidney infection or pyelonephritis and urinalysis is strongly positive for infection. Left kidney area is quite tender to palpation. However kidney infection does not produce diarrhea. He therefore appears that you have a bacterial source of infection or toxin illness to cause prolific diarrhea. Stools tested positive for white blood cells. Stools are usually negative for white cells if the infection is viral in origin. You're given initial dose of antibiotic in the ED Rocephin 1 g IV primarily for kidney infection. Treatment at home is plenty of fluids such as Gatorade or Powerade ideally sipping 5 ounces per hour. When hungry try soda crackers or toast etc. If tolerated may advance to broth soups or turkey rice/turkey noodle soups, cookies etc. suggest staying away from dairy products and apple juice or grape juice until stools are formed back up. May use Zofran 4 mg under tongue every 4- 6 hours as needed for relief of nausea or vomiting. Bentyl 20 mg tablets retaken every 6 hours if diarrhea is persisting. Antibiotic is to be Cipro 500 mg twice daily for suspect bacterial induced diarrhea and also to clear up urinary tract infection. First tablet would be due around noon today and again before bed tonight. Return to medical care if not markedly improved in the next 24 hours. - My Orders Last 24 Hours: My Active Orders 06/28/17 01:00 CULTURE URINE [RM] Stat 06/28/17 01:50 CULTURE STOOL + SHIGATOX [] Stat - Assessment/Plan Last 24 Hours: My Active Orders 06/28/17 01:00 CULTURE URINE [RM] Stat 06/28/17 01:50 CULTURE STOOL + SHIGATOX [] Stat
[2017-06-28] MEDS ORDERED: Meperidine PF 50 MG/ML Syringe IVPUSH ONE (00:57)
[2017-06-28] MEDS ORDERED: Metoclopramide 10 MG/2 ML SDV IVPUSH ONE (00:57)
[2017-06-28] MEDS ORDERED: Dextrose 5%-Lactated Ringers 1,000 ML IV SCH (01:00)
[2017-06-28] MEDS ORDERED: Ketorolac 30 MG/ML SDV IVPUSH SCH (01:00)
[2017-06-28] MEDS ORDERED: Ketorolac 30 MG/ML SDV ONE (01:09)
[2017-06-28] MEDS ORDERED: Ondansetron 4 MG/2 ML SDV IVPUSH ONE ×2 (01:49→05:21)
[2017-06-28] MEDS ORDERED: cefTRIAXone 1 GM in Sodium Chloride 0.9% 100 ML IV ONE (01:53)
[2017-06-28] MEDS ORDERED: Dextrose 5%-0.9% NaCl 1,000 ML IV SCH (02:45)
[2017-06-28] MEDS ORDERED: Acetaminophen 325 MG Tab PO ONE (06:06)
== END 2017-06-28 06:35 | disposition home or self-care (01) ==
LOC: JD.ED 00:23
DX: K52.9 Noninfective gastroenteritis and colitis, unspecified (principal); N10 Acute pyelonephritis; E78.00 Pure hypercholesterolemia, unspecified; J45.909 Unspecified asthma, uncomplicated; Z88.0 Allergy status to penicillin; Z88.8 Allergy status to other drugs, medicaments and biological substances; Z88.1 Allergy status to other antibiotic agents; Z79.899 Other long term (current) drug therapy
CPT/HCPCS: 36415; 80053; 81001; 82009; 85025; 86140; 87046; 87086; 87493; 87804; 89055; 96361; 96365; 96375; 96376; 99284; A9270; J0696; J1885; J2405; J2765; J7030; J7042; 87427

== ENCOUNTER 2017-08-06 15:48 | Emergency (ER) | payer BC ==
[2017-08-06] MEDS ORDERED: Sodium Chloride 0.9% 1,000 ML IV SCH (16:30)
[2017-08-06] MEDS ORDERED: Ondansetron 4 MG/2 ML SDV IVPUSH ONE (17:16)
[2017-08-06] MEDS ORDERED: Ketorolac 30 MG/ML SDV IVPUSH ONE (17:20)
--- NOTE | 2017-08-06 17:56 | EDM.PDOC ---
ED HPI GENERAL MEDICAL PROBLEM - General Chief Complaint: Abdominal Pain Stated Complaint: LOW ABDOMINAL PAIN Time Seen by Provider: 08/06/17 17:15 Source of Information: Reports: Patient History Limitations: Reports: No Limitations - History of Present Illness INITIAL COMMENTS - FREE TEXT/NARRATIVE: 27-year-old female presents for evaluation and treatment of abdominal pain. Patient reports that this episode of abdominal pain started Suddenly today. Located across her lower abdomen and pelvic area. She reports associated symptoms of nausea and bloating. No fevers, chills or vomiting. She has had 3 bowel movements since entering the ER, looser than normal. She is also passing gas. She has been taking Tylenol and Motrin without any symptom relief. Patient reports a past medical history of endometriosis. States that she's had a hysterectomy but she continues to have endometriosis. She is supposed to go to [place] in the near future for further evaluation of this. She is currently seeing Paige Coleman and Dr. Wolf. Luque for this. Her previous abdominal surgeries including appendectomy, cholecystectomy, exploratory lap for lysis of adhesions. Abdominal Pain Score (Numeric/FACES): 8 - Related Data Allergies Allergy/AdvReac Type Severity Reaction Status Date / Time Penicillins Allergy Hives Verified 08/06/17 16:19 prednisone Allergy Hives Verified 08/06/17 16:19 Sulfa (Sulfonamide Allergy Anaphylactic Verified 08/06/17 16:19 Antibiotics) Shock vancomycin Allergy Anaphylactic Verified 08/06/17 16:19 Shock azithromycin AdvReac Abdominal Verified 08/06/17 16:19 Pain lorazepam [From Ativan] AdvReac Anxiety Verified 08/06/17 16:19 meperidine [From Demerol] AdvReac Agitation Verified 08/06/17 16:19 meperidine HCl [From Demerol] AdvReac Anxiety Verified 08/06/17 16:19 propoxyphene AdvReac Anxiety Verified 08/06/17 16:19 [From Darvocet-N] Home Meds: Home Meds Estradiol 1.5 mg PO DAILY 10/30/15 [History] ClonazePAM [KlonoPIN] 0.5 mg PO Q4H PRN 09/17/16 [History] Diclofenac Sodium [Voltaren 1% Gel] 1 applic TOP QID 04/07/17 [History] Gabapentin [Neurontin] 300 mg PO BID 04/07/17 [History] Lactobacillus Acidophilus [Probiotic] 1 cap PO DAILY 04/07/17 [History] Linaclotide [Linzess] 145 mg PO DAILY 04/07/17 [History] Vortioxetine Hydrobromide [Trintellix] 10 mg PO DAILY 04/07/17 [History] Ibuprofen 600 mg PO Q6H PRN #60 tablet 04/11/17 [Rx] Ciprofloxacin HCl [Cipro] 500 mg PO BID #16 tablet 06/28/17 [Rx] Dicyclomine [Bentyl] 20 mg PO Q6H PRN #5 tablet 06/28/17 [Rx] Ondansetron [Zofran] 4 mg BUCCAL Q6H PRN #6 tab 06/28/17 [Rx] Venlafaxine [Effexor] 150 mg PO DAILY 06/28/17 [History] Past Medical History HEENT History: Reports: Allergic Rhinitis, Impaired Vision, Sinusitis Cardiovascular History: Reports: High Cholesterol, Other (See Below) Other Cardiovascular History: tachycardia Respiratory History: Reports: Asthma Gastrointestinal History: Reports: Irritable Bowel Syndrome, Other (See Below) Other Gastrointestinal History: elevated LFTs, RUQ pain Genitourinary History: Reports: None, Renal Calculus, UTI, Recurrent 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: Reports: Endometriosis Other OB/BYN History: 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 Musculoskeletal History: Reports: Fibromyalgia, Other (See Below) Other Musculoskeletal History: chronic pain Neurological History: Reports: None Psychiatric History: Reports: Anxiety, Depression Endocrine/Metabolic History: Reports: Vitamin D Deficiency Hematologic History: Reports: None Immunologic History: Reports: None Oncologic (Cancer) History: Reports: None - Infectious Disease History Infectious Disease History: Reports: Chicken Pox, MRSA, Shingles Other Infectious Disease History: 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 - Past Surgical History Head Surgeries/Procedures: Reports: None HEENT Surgical History: Reports: Tonsillectomy Respiratory Surgical History: Reports: None GI Surgical History: Reports: Appendectomy, Cholecystectomy, Colonoscopy, EGD, Lysis of Adhesions Other GI Surgeries/Procedures: perotonitis, n/v Female Surgical History: Reports: Hysterectomy, Salpingo-Oophorectomy, Other (See Below) Other Female Surgeries/Procedures: radical hysterectomy--due to extensive endometriosis. She has pelvic and bladder involvement. Endocrine Surgical History: Reports: None Neurological Surgical History: Reports: None Oncologic Surgical History: Reports: None Dermatological Surgical History: Reports: None Social & Family History - Family History Family Medical History: Noncontributory Cardiac: Reports: CAD Endocrine/Metabolic: Reports: Diabetes, type II, Osteoporosis - Tobacco Use Smoking Status *Q: Never Smoker Used Tobacco, but Quit: No Second Hand Smoke Exposure: No - Caffeine Use Caffeine Use: Reports: None Other Caffeine Use: daily - Alcohol Use Days Per Week of Alcohol Use: 0 Number of Drinks Per Day: 0 Total Drinks Per Week: 0 - Recreational Drug Use Recreational Drug Use: No Drug Use in Last 12 Months: Yes Recreational Drug Type: Reports: Marijuana/Hashish (in past) Recreational Drug Use Frequency: Daily - Living Situation & Occupation Living situation: Reports: with Significant Other Occupation: Unemployed ED ROS GENERAL - Review of Systems Review Of Systems: See Below Constitutional: Denies: Fever, Chills GI/Abdominal: Reports: Abdominal Pain (lower abdomen), Diarrhea, Flatus ( continues to pass flatus), Nausea, Other (reports feeling bloated). Denies: Bloody Stool, Hematochezia, Melena, Vomiting : Reports: No Symptoms. Denies: Dysuria ED EXAM, GI/ABD - Physical Exam Exam: See Below Exam Limited By: No Limitations General Appearance: Alert, WD/WN, Anxious, Moderate Distress Respiratory/Chest: No Respiratory Distress, Lungs Clear, Normal Breath Sounds Cardiovascular: Normal Peripheral Pulses, Regular Rate, Rhythm, No Murmur GI/Abdominal Exam: Normal Bowel Sounds, Soft, Tender (lower abdomen). No: Guarding, Rigid, Rebound Neurological: Alert, Oriented, Normal Cognition Psychiatric: Normal Affect, Normal Mood Skin Exam: Warm, Dry, Normal Color Course - Vital Signs Last Recorded V/S: Last Vital Signs Temp 37.1 C 08/06/17 16:03 Pulse 85 08/06/17 19:40 Resp 16 08/06/17 19:40 BP 102/65 08/06/17 19:40 Pulse Ox 98 08/06/17 19:40 - Orders/Labs/Meds Orders: Active Orders 24 hr Category Date Time Status DRUG SCREEN, URINE [URCHEM] Stat Lab 08/06/17 16:25 Ordered UA W/MICROSCOPIC [URIN] Stat Lab 08/06/17 16:25 Ordered Labs: Laboratory Tests 08/06/17 08/06/17 08/06/17 Range/Units 16:22 16:22 16:25 WBC 6.21 (3.98-10.04) K/mm3 RBC 4.23 (3.98-5.22) M/mm3 Hgb 12.5 (11.2-15.7) gm/L Hct 37.6 (34.1-44.9) % MCV 88.9 (79.4-94.8) fl MCH 29.6 (25.6-32.2) pg MCHC 33.2 (32.2-35.5) g/dl RDW Std Deviation 38.9 (36.4-46.3) fL Plt Count 246 (182-369) K/mm3 MPV 11.0 (9.4-12.3) fl Neutrophils % (Manual) 45 (40-60) % Band Neutrophils % 0 (0-10) % Lymphocytes % (Manual) 50 H (20-40) % Atypical Lymphs % 0 % Monocytes % (Manual) 4 (2-10) % Eosinophils % (Manual) 1 (0.7-5.8) % Basophils % (Manual) 0 L (0.1-1.2) Platelet Estimate Adequate Plt Morphology Comment Normal RBC Morph Comment Normal Sodium 138 (136-145) mEq/L Potassium 3.7 (3.5-5.1) mEq/L Chloride 104 (98-107) mEq/L Carbon Dioxide 24 (21-32) mEq/L Anion Gap 13.7 (5-15) BUN 16 (7-18) mg/dL Creatinine 0.7 (0.55-1.02) mg/dL Est Cr Clr Drug Dosing 108.63 mL/min Estimated GFR (MDRD) > 60 (>60) mL/min BUN/Creatinine Ratio 22.9 H (14-18) Glucose 89 (74-106) mg/dL Calcium 9.0 (8.5-10.1) mg/dL Total Bilirubin 0.3 (0.2-1.0) mg/dL AST 45 H (15-37) U/L ALT 95 H (14-59) U/L Alkaline Phosphatase 102 (46-116) U/L C-Reactive Protein < 0.2 (<1.0) mg/dL Total Protein 7.4 (6.4-8.2) g/dl Albumin 4.1 (3.4-5.0) g/dl Globulin 3.3 gm/dL Albumin/Globulin Ratio 1.2 (1-2) Lipase 164 (73-393) U/L Urine Color Yellow (Yellow) Urine Appearance Clear (Clear) Urine pH 6.5 (5.0-8.0) Ur Specific [place] 1.015 (1.005-1.030) Urine Protein Negative (Negative) Urine Glucose (UA) Negative (Negative) Urine Ketones Negative (Negative) Urine Occult Blood Negative (Negative) Urine Nitrite Negative (Negative) Urine Bilirubin Negative (Negative) Urine Urobilinogen 0.2 (0.2-1.0) Ur Leukocyte Esterase Negative (Negative) Urine RBC Not seen (0-5) /hpf Urine WBC Not seen (0-5) /hpf Ur Epithelial Cells 10-20 H (0-5) /hpf Urine Bacteria Not seen (FEW) /hpf Urine Mucus Few (FEW) /hpf Urine Opiates Screen (NEGATIVE) Ur Buprenorphine Scrn (NEGATIVE) Ur Oxycodone Screen (NEGATIVE) Urine Methadone Screen (NEGATIVE) Ur Propoxyphene Screen (NEGATIVE) Ur Barbiturates Screen (NEGATIVE) Ur Tricyclics Screen (NEGATIVE) Ur Phencyclidine Scrn (NEGATIVE) Ur Amphetamine Screen (NEGATIVE) U Methamphetamines Scrn (NEGATIVE) U Benzodiazepines Scrn (NEGATIVE) U Cocaine Metab Screen (NEGATIVE) U Marijuana (THC) Screen (NEGATIVE) 08/06/17 Range/Units 16:25 WBC (3.98-10.04) K/mm3 RBC (3.98-5.22) M/mm3 Hgb (11.2-15.7) gm/L Hct (34.1-44.9) % MCV (79.4-94.8) fl MCH (25.6-32.2) pg MCHC (32.2-35.5) g/dl RDW Std Deviation (36.4-46.3) fL Plt Count (182-369) K/mm3 MPV (9.4-12.3) fl Neutrophils % (Manual) (40-60) % Band Neutrophils % (0-10) % Lymphocytes % (Manual) (20-40) % Atypical Lymphs % % Monocytes % (Manual) (2-10) % Eosinophils % (Manual) (0.7-5.8) % Basophils % (Manual) (0.1-1.2) Platelet Estimate Plt Morphology Comment RBC Morph Comment Sodium (136-145) mEq/L Potassium (3.5-5.1) mEq/L Chloride (98-107) mEq/L Carbon Dioxide (21-32) mEq/L Anion Gap (5-15) BUN (7-18) mg/dL Creatinine (0.55-1.02) mg/dL Est Cr Clr Drug Dosing mL/min Estimated GFR (MDRD) (>60) mL/min BUN/Creatinine Ratio (14-18) Glucose (74-106) mg/dL Calcium (8.5-10.1) mg/dL Total Bilirubin (0.2-1.0) mg/dL AST (15-37) U/L ALT (14-59) U/L Alkaline Phosphatase (46-116) U/L C-Reactive Protein (<1.0) mg/dL Total Protein (6.4-8.2) g/dl Albumin (3.4-5.0) g/dl Globulin gm/dL Albumin/Globulin Ratio (1-2) Lipase (73-393) U/L Urine Color (Yellow) Urine Appearance (Clear) Urine pH (5.0-8.0) Ur Specific [place] (1.005-1.030) Urine Protein (Negative) Urine Glucose (UA) (Negative) Urine Ketones (Negative) Urine Occult Blood (Negative) Urine Nitrite (Negative) Urine Bilirubin (Negative) Urine Urobilinogen (0.2-1.0) Ur Leukocyte Esterase (Negative) Urine RBC (0-5) /hpf Urine WBC (0-5) /hpf Ur Epithelial Cells (0-5) /hpf Urine Bacteria (FEW) /hpf Urine Mucus (FEW) /hpf Urine Opiates Screen Negative (NEGATIVE) Ur Buprenorphine Scrn Negative (NEGATIVE) Ur Oxycodone Screen Negative (NEGATIVE) Urine Methadone Screen Negative (NEGATIVE) Ur Propoxyphene Screen Negative (NEGATIVE) Ur Barbiturates Screen Negative (NEGATIVE) Ur Tricyclics Screen Negative (NEGATIVE) Ur Phencyclidine Scrn Negative (NEGATIVE) Ur Amphetamine Screen Negative (NEGATIVE) U Methamphetamines Scrn Negative (NEGATIVE) U Benzodiazepines Scrn Negative (NEGATIVE) U Cocaine Metab Screen Negative (NEGATIVE) U Marijuana (THC) Screen Presumptive positive H (NEGATIVE) Meds: Medications Discontinued Medications Generic Name Dose Route Start Last Admin Trade Name Lu PRN Reason Stop Dose Admin Hydromorphone HCl 0.5 mg 08/06/17 18:00 08/06/17 18:19 Dilaudid IVPUSH 08/06/17 18:01 0.5 mg ONETIME ONE Administration Hydromorphone HCl 0.5 mg 08/06/17 19:16 08/06/17 19:33 Dilaudid IVPUSH 08/06/17 19:17 0.5 mg ONETIME ONE Administration Sodium Chloride 1,000 mls @ 150 mls/hr 08/06/17 16:30 08/06/17 16:28 Normal Saline IV 150 mls/hr ASDIRECTED POP Administration Ketorolac Tromethamine 30 mg 08/06/17 17:20 08/06/17 17:27 Toradol IVPUSH 08/06/17 17:21 30 mg ONETIME ONE Administration Ondansetron HCl 4 mg 08/06/17 17:16 08/06/17 17:27 Zofran IVPUSH 08/06/17 17:17 4 mg ONETIME ONE Administration - Radiology Interpretation Free Text/Narrative:: flat and upright shows small air fluid levels questionable ileus; no signs of obstruction, reviewed by myself and Dr. Conley. - Re-Assessments/Exams Free Text/Narrative Re-Assessment/Exam: 08/06/17 19:14 I reviewed the lab section x-ray with the patient. She initially states that the Toradol and Zofran did not help with the pain. Reports the nausea has improved. I did give her some Dilaudid about an hour ago. This significantly helped pain and now states the pain as a 5 out of 10. I will give her additional 0.5 mg Dilaudid. At this point there is no reason to continue with any additional imaging. Patient is having looser bowel movements and is passing gas. Likely is her endometriosis that is acting up, she states that this does feel similar to previous flares of her endometriosis. I will give her a few tabs of Percocet from [facility] she is instructed to follow up with her primary care provider or 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 for further pain management. Discharge instructions as documented. Departure - Departure Time of Disposition: 19:20 Disposition: Home, Self-Care 01 Condition: Fair Clinical Impression: Abdominal pain Qualifiers: Abdominal location: unspecified location Qualified Code(s): R10.9 - Unspecified abdominal pain - Discharge Information Instructions: Abdominal Pain, Adult, [id number] Referrals: Paige Coleman PA [Primary Care Provider] - Hal Lyons MD [Physician] - Forms: ED Department Discharge Additional Instructions: Rx for percocet 5-325mg tabs sig take 1 -2 tabs PO every 4-6 hours prn pain #6 from [facility] Follow-up with Dr. Lyons or Paige for further pain management. Continue with your current plan of care. Please return to ER for symptoms change or worsen. - My Orders Last 24 Hours: My Active Orders 08/06/17 16:25 DRUG SCREEN, URINE [URCHEM] Stat UA W/MICROSCOPIC [URIN] Stat - Assessment/Plan Last 24 Hours: My Active Orders 08/06/17 16:25 DRUG SCREEN, URINE [URCHEM] Stat UA W/MICROSCOPIC [URIN] Stat
[2017-08-06] MEDS ORDERED: HYDROmorphone 0.5 MG/0.5 ML SYRINGE IVPUSH ONE ×2 (18:00→19:16)
[2017-08-06 19:48] VITALS: BP 102/65
--- NOTE | 2017-08-07 07:37 | CR ---
Abdomen: Supine and upright views of the abdomen were obtained. Comparison: Prior abdominal x-ray of 04/12/17. Surgical clips are seen within the left side of the pelvis. Calcifications also seen with the left side of the pelvis most likely representing phleboliths. Scattered gas within nondilated colon and small bowel is seen. Multiple air-fluid levels are seen within small bowel. No free air is seen. No soft tissue abnormality is seen. Previous cholecystectomy is noted. Impression: 1. Scattered gas within nondilated small bowel showing multiple air-fluid levels raising the possibility of gastroenteritis. 2. Other incidental findings. Diagnostic code #3
== END 2017-08-06 19:40 | disposition home or self-care (01) ==
LOC: JD.ED 15:48
DX: R10.30 Lower abdominal pain, unspecified (principal); E78.00 Pure hypercholesterolemia, unspecified; J45.909 Unspecified asthma, uncomplicated; F41.9 Anxiety disorder, unspecified; E11.9 Type 2 diabetes mellitus without complications; F32.9 Major depressive disorder, single episode, unspecified; Z88.0 Allergy status to penicillin; Z88.8 Allergy status to other drugs, medicaments and biological substances; Z88.2 Allergy status to sulfonamides; Z88.1 Allergy status to other antibiotic agents; Z79.899 Other long term (current) drug therapy; Z87.442 Personal history of urinary calculi; Z87.440 Personal history of urinary (tract) infections; Z86.14 Personal history of Methicillin resistant Staphylococcus aureus infection
CPT/HCPCS: 36415; 74019; 80053; 80306; 81001; 83690; 85025; 86140; 96361; 96374; 96375; 96376; 99284; J1170; J1885; J2405; J7040

== ENCOUNTER 2017-09-20 13:00 | Emergency (ER) | payer BC ==
--- NOTE | 2017-09-20 13:23 | EDM.PDOC ---
ED HPI GENERAL MEDICAL PROBLEM - General Chief Complaint: Allergic Reaction Stated Complaint: CHEST PAIN/PUFFY FACE- POSS. ALLERGIC REACTION Time Seen by Provider: 09/20/17 13:23 Source of Information: Reports: Patient - History of Present Illness INITIAL COMMENTS - FREE TEXT/NARRATIVE: Patient presents to the emergency room today with concerns of allergic reaction. She does have seasonal/environmental allergies but has not been taking anything recently. She occasionally takes Benadryl. She feels that she has a rash to her head. She is also noticing some left-sided chest pain. She is unsure if this is her heart or her anxiety. She denies any shortness of breath. She has chronic pelvic pain. Chest Pain Score (Numeric/FACES): 4 - Related Data Allergies Allergy/AdvReac Type Severity Reaction Status Date / Time Penicillins Allergy Hives Verified 08/06/17 16:19 prednisone Allergy Hives Verified 08/06/17 16:19 Sulfa (Sulfonamide Allergy Anaphylactic Verified 08/06/17 16:19 Antibiotics) Shock vancomycin Allergy Anaphylactic Verified 08/06/17 16:19 Shock azithromycin AdvReac Abdominal Verified 08/06/17 16:19 Pain lorazepam [From Ativan] AdvReac Anxiety Verified 08/06/17 16:19 meperidine [From Demerol] AdvReac Agitation Verified 08/06/17 16:19 meperidine HCl [From Demerol] AdvReac Anxiety Verified 08/06/17 16:19 propoxyphene AdvReac Anxiety Verified 08/06/17 16:19 [From Darvocet-N] Home Meds: Home Meds Estradiol 1.5 mg PO DAILY 10/30/15 [History] ClonazePAM [KlonoPIN] 0.5 mg PO Q4H PRN 09/17/16 [History] Gabapentin [Neurontin] 300 mg PO DAILY 04/07/17 [History] Lactobacillus Acidophilus [Probiotic] 1 cap PO DAILY 04/07/17 [History] Linaclotide [Linzess] 145 mg PO DAILY 04/07/17 [History] Ibuprofen 600 mg PO Q6H PRN #60 tablet 04/11/17 [Rx] Dicyclomine [Bentyl] 20 mg PO Q6H PRN #5 tablet 06/28/17 [Rx] Ondansetron [Zofran] 4 mg BUCCAL Q6H PRN #6 tab 06/28/17 [Rx] Venlafaxine [Effexor] 150 mg PO DAILY 06/28/17 [History] Gabapentin [Neurontin] 600 mg PO BEDTIME 09/20/17 [History] Naltrexone 4.5 mg PO DAILY 09/20/17 [History] Past Medical History HEENT History: Reports: Allergic Rhinitis, Impaired Vision, Sinusitis Cardiovascular History: Reports: High Cholesterol, Other (See Below) Other Cardiovascular History: tachycardia Respiratory History: Reports: Asthma Gastrointestinal History: Reports: Irritable Bowel Syndrome, Other (See Below) Other Gastrointestinal History: elevated LFTs, RUQ pain Genitourinary History: Reports: None, Renal Calculus, UTI, Recurrent [employer]T [employer]ST[employer]ER History: Reports: Endometriosis Other OB/BYN History: 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 Musculoskeletal History: Reports: Fibromyalgia, Other (See Below) Other Musculoskeletal History: chronic pain Neurological History: Reports: None Psychiatric History: Reports: Anxiety, Depression Endocrine/Metabolic History: Reports: Vitamin D Deficiency Hematologic History: Reports: None Immunologic History: Reports: None Oncologic (Cancer) History: Reports: None - Infectious Disease History Infectious Disease History: Reports: Chicken Pox, MRSA, Shingles Other Infectious Disease History: 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 - Past Surgical History Head Surgeries/Procedures: Reports: None HEENT Surgical History: Reports: Tonsillectomy Respiratory Surgical History: Reports: None GI Surgical History: Reports: Appendectomy, Cholecystectomy, Colonoscopy, EGD, Lysis of Adhesions Other GI Surgeries/Procedures: perotonitis, n/v Female Surgical History: Reports: Hysterectomy, Salpingo-Oophorectomy, Other (See Below) Other Female Surgeries/Procedures: radical hysterectomy--due to extensive endometriosis. She has pelvic and bladder involvement. Endocrine Surgical History: Reports: None Neurological Surgical History: Reports: None Oncologic Surgical History: Reports: None Dermatological Surgical History: Reports: None Social & Family History - Family History Family Medical History: Noncontributory Cardiac: Reports: CAD Endocrine/Metabolic: Reports: Diabetes, type II, Osteoporosis - Caffeine Use Caffeine Use: Reports: None Other Caffeine Use: daily - Living Situation & Occupation Living situation: Reports: with Significant Other Occupation: Unemployed ED ROS ALLERGIC REACTION - Review of Systems Review Of Systems: See Below Constitutional: Reports: Fatigue (chronic, unchanged). Denies: Fever, Chills, Malaise, Weakness HEENT: Reports: No Symptoms Respiratory: Reports: No Symptoms Cardiovascular: Reports: Chest Pain. Denies: Blood Pressure Problem, Lightheadedness, Syncope GI/Abdominal: Reports: No Symptoms Musculoskeletal: Reports: No Symptoms Skin: Reports: Rash (forehead) ED EXAM GENERAL NO PERIP PULSE - Physical Exam Exam: See Below General Appearance: Alert, WD/WN, Anxious Eye Exam: Bilateral Eye: PERRL Ears: Normal External Exam, Normal Canal, Normal TMs Nose: Normal Inspection, Normal Mucosa Throat/Mouth: Normal Inspection, Normal Oropharynx Head: Atraumatic, Normocephalic Neck: Normal Inspection, Supple, Non-Tender Respiratory/Chest: No Respiratory Distress, Lungs Clear, Normal Breath Sounds, No Accessory Muscle Use Cardiovascular: Normal Peripheral Pulses, Regular Rate, Rhythm, No Murmur GI/Abdominal: Normal Bowel Sounds, Soft, Non-Tender Neurological: Alert, Oriented Psychiatric: Anxious Skin Exam: Warm, Dry, Intact EKG INTERPRETATION EKG Date: 09/20/17 Time: 13:34 Rhythm: NSR Rate (Beats/Min): 76 Course - Vital Signs Last Recorded V/S: Last Vital Signs Temp 98.3 F 09/20/17 13:08 Pulse 78 09/20/17 16:24 Resp 18 09/20/17 13:08 BP 105/64 09/20/17 16:24 Pulse Ox 99 09/20/17 13:08 - Orders/Labs/Meds Orders: Active Orders 24 hr Category Date Time Status EKG 12 Lead [EKG Documentation Completion] [RC] STAT Care 09/20/17 13:30 Active Labs: Laboratory Tests 09/20/17 09/20/17 Range/Units 13:18 13:18 WBC 6.71 (3.98-10.04) K/mm3 RBC 4.55 (3.98-5.22) M/mm3 Hgb 13.3 (11.2-15.7) gm/L Hct 39.5 (34.1-44.9) % MCV 86.8 (79.4-94.8) fl MCH 29.2 (25.6-32.2) pg MCHC 33.7 (32.2-35.5) g/dl RDW Std Deviation 37.6 (36.4-46.3) fL Plt Count 253 (182-369) K/mm3 MPV 11.2 (9.4-12.3) fl Neutrophils % (Manual) 62 H (40-60) % Band Neutrophils % 0 (0-10) % Lymphocytes % (Manual) 36 (20-40) % Atypical Lymphs % 0 % Monocytes % (Manual) 0 L (2-10) % Eosinophils % (Manual) 1 (0.7-5.8) % Basophils % (Manual) 1 (0.1-1.2) Platelet Estimate Adequate RBC Morph Comment Normal Sodium 139 (136-145) mEq/L Potassium 4.1 (3.5-5.1) mEq/L Chloride 103 (98-107) mEq/L Carbon Dioxide 24 (21-32) mEq/L Anion Gap 16.1 H (5-15) BUN 13 (7-18) mg/dL Creatinine 0.8 (0.55-1.02) mg/dL Est Cr Clr Drug Dosing 95.05 mL/min Estimated GFR (MDRD) > 60 (>60) mL/min BUN/Creatinine Ratio 16.3 (14-18) Glucose 91 (74-106) mg/dL Calcium 9.2 (8.5-10.1) mg/dL Total Bilirubin 0.3 (0.2-1.0) mg/dL AST 52 H (15-37) U/L ALT 85 H (14-59) U/L Alkaline Phosphatase 92 (46-116) U/L Troponin I < 0.017 (0.00-0.056) ng/mL C-Reactive Protein < 0.2 (<1.0) mg/dL Total Protein 8.1 (6.4-8.2) g/dl Albumin 4.2 (3.4-5.0) g/dl Globulin 3.9 gm/dL Albumin/Globulin Ratio 1.1 (1-2) TSH 3rd Generation 0.785 (0.358-3.74) uIU/mL Meds: Medications Discontinued Medications Generic Name Dose Route Start Last Admin Trade Name Freq PRN Reason Stop Dose Admin Diphenhydramine HCl 50 mg 09/20/17 13:31 09/20/17 13:49 Benadryl PO 09/20/17 13:32 50 mg ONETIME ONE Administration Sodium Chloride 1,000 mls @ 250 mls/hr 09/20/17 13:31 09/20/17 13:48 Normal Saline IV 09/20/17 17:30 250 mls/hr ONETIME ONE Administration Ketorolac Tromethamine 30 mg 09/20/17 13:31 09/20/17 13:50 Toradol IVPUSH 09/20/17 13:32 30 mg ONETIME ONE Administration - Re-Assessments/Exams Free Text/Narrative Re-Assessment/Exam: CBC is unremarkable, CMP is normal with the exception of mildly elevated AST and ALT which is chronic for her. Next troponin is negative. CRP <0.2. TSH 0.785. Chest x-ray is normal and EKG is normal sinus rhythm with a rate of 76. Rash improving and pruritus resolved with Benadryl. Suspect the patient's chest pain more related to her anxiety which is chronic and quite significant, do not feel this is cardiac etiology and patient agrees. She will started daily antihistamine such as Zyrtec or Claritin. Topical hydrocortisone as needed for the rash. She will continue on her Effexor and use her clonazepam when necessary as needed. She'll follow up in the clinic or return to the emergency room if needed. 09/20/17 19:17 09/20/17 19:18 09/20/17 19:19 Departure - Departure Time of Disposition: 16:36 Disposition: Home, Self-Care 01 Condition: Good Clinical Impression: Seasonal allergies, Atypical chest pain, Anxiety - Discharge Information Instructions: Allergies, Adult, [id number] Referrals: Paige Coleman PA [Primary Care Provider] - Forms: ED Department Discharge Additional Instructions: You were evaluated in the emergency room for allergies, rash and chest pain. I do not feel that your chest pain is related to your heart, I think it is more related to anxiety. Use your clonazepam as needed for this. Start a daily antihistamine for your allergies such as Zyrtec or Claritin. You may use topical hydrocortisone cream for your rash. Follow-up in the clinic or return to emergency room if needed. - My Orders Last 24 Hours: My Active Orders 09/20/17 13:30 EKG 12 Lead [EKG Documentation Completion] [RC] STAT - Assessment/Plan Last 24 Hours: My Active Orders 09/20/17 13:30 EKG 12 Lead [EKG Documentation Completion] [RC] STAT
[2017-09-20] MEDS ORDERED: Sodium Chloride 0.9% 1,000 ML IV ONE (13:31)
[2017-09-20] MEDS ORDERED: diphenhydrAMINE 50 MG Cap PO ONE (13:31)
[2017-09-20] MEDS ORDERED: Ketorolac 30 MG/ML SDV IVPUSH ONE (13:31)
--- NOTE | 2017-09-20 14:25 | CR ---
Chest: Two views of the chest were obtained. Comparison: No prior chest x-ray. Heart size and mediastinum are normal. Lungs are clear. Minimal scoliosis is seen. Surgical clips are seen from prior cholecystectomy. Impression: 1. Nothing acute is seen on two-view chest x-ray. Diagnostic code #2
[2017-09-20 16:25] VITALS: BP 105/64
== END 2017-09-20 16:50 | disposition home or self-care (01) ==
LOC: JD.ED 13:00
DX: R07.89 Other chest pain (principal); F41.9 Anxiety disorder, unspecified; Z91.09 Other allergy status, other than to drugs and biological substances; F32.9 Major depressive disorder, single episode, unspecified; E78.00 Pure hypercholesterolemia, unspecified; J45.909 Unspecified asthma, uncomplicated; Z79.899 Other long term (current) drug therapy; Z88.0 Allergy status to penicillin; Z88.2 Allergy status to sulfonamides; Z88.8 Allergy status to other drugs, medicaments and biological substances; Z88.5 Allergy status to narcotic agent
CPT/HCPCS: 36415; 71046; 80053; 84443; 84484; 85007; 85027; 86140; 93005; 96361; 96374; 99284; A9270; J1885; J7040

== ENCOUNTER 2022-07-06 13:10 | Emergency (ER) | payer SELFPAY ==
[2022-07-06 13:20] VITALS: BP 124/77; PULSE 126
== END 2022-07-06 13:48 ==
LOC: JD.ED 13:10
DX: Z53.21 Procedure and treatment not carried out due to patient leaving prior to being seen by health care provider (principal)

== ENCOUNTER 2022-11-12 17:00 | Emergency (ER) | payer OTHER, MEDICAID ==
[2022-11-12 17:30] LABS: BASOPHILS ABSOLUTE AUTO 0.01 K/mm3 (0.01-0.08); BASOPHILS PERCENT AUTO 0.2 % (0.1-1.2); EOSINOPHILS ABSOLUTE AUTO 0.07 K/mm3 (0.04-0.36); EOSINOPHILS PERCENT AUTO 1.3 (0.7-5.8); HEMATOCRIT 36.5 % (34.1-44.9); HEMOGLOBIN 12.6 gm/dl (11.2-15.7); LYMPHOCYTES ABSOLUTE AUTO 1.89 K/mm3 (1.18-3.74); LYMPHOCYTES PERCENT AUTO 35.7 % (19.3-51.7); MEAN CORPUSCULAR HEMOGLOBIN 28.5 pg (25.6-32.2); MEAN CORPUSCULAR HGB CONC 34.5 g/dl (32.2-35.5); MEAN CORPUSCULAR VOLUME 82.6 fl (79.4-94.8); MEAN PLATELET VOLUME 10.4 fl (9.4-12.3); MONOCYTES ABSOLUTE AUTO 0.35 K/mm3 (0.24-0.36); MONOCYTES PERCENT AUTO 6.6 % (4.7-12.5); NEUTROPHILS ABSOLUTE AUTO 2.97 K/mm3 (1.56-6.13); NEUTROPHILS PERCENT AUTO 56.2 % (34.0-71.1); PLATELET COUNT,PLT 296 K/mm3 (182-369); RED BLOOD CELL COUNT 4.42 M/mm3 (3.98-5.22); WHITE BLOOD CELL COUNT,WBC 5.29 K/mm3 (3.98-10.04)
[2022-11-12 17:50] LABS: ALBUMIN 3.3 g/dl (3.4-5.0); ANION GAP 13.6 (5-15); BILIRUBIN TOTAL 0.4 mg/dL (0.2-1.0); BUN/CREATININE RATIO 17.5 (14-18); CALCIUM 8.7 mg/dL (8.5-10.1); CREATININE 0.8 mg/dL (0.55-1.02); EST CRCL DRUG DOSING (CG) 90.84 mL/min; POTASSIUM,K 3.6 mEq/L (3.5-5.1); PROTEIN TOTAL,TP 6.5 g/dl (6.4-8.2)
[2022-11-12 19:03] VITALS: BP 122/80; PULSE 85
== END 2022-11-12 18:45 | disposition home or self-care (01) ==
LOC: JD.ED 17:00
DX: S16.1XXA Strain of muscle, fascia and tendon at neck level, initial encounter (principal); S09.90XA Unspecified injury of head, initial encounter; Z88.0 Allergy status to penicillin; Z88.8 Allergy status to other drugs, medicaments and biological substances; Z88.2 Allergy status to sulfonamides; Z88.1 Allergy status to other antibiotic agents; V40.6XXA Car passenger injured in collision with pedestrian or animal in traffic accident, initial encounter
CPT/HCPCS: 36415; 70450; 70450-26; 71045; 71045-26; 72125; 72125-26; 80053; 83690; 85025; 99283; 99284